=== PATIENT | male | born 1975 | race Caucasian/White ===

== ENCOUNTER 2018-07-01 11:34 | Outpatient (REF) | payer MEDICARE, MEDICAID, SELFPAY ==
[2018-07-01 20:25] LABS: Anion Gap 7.7 mmol/L (3-11); BUN 15 mg/dL (7-18); CO2 28.3 mmol/L (21.0-32.0); CREATININE 1.09 mg/dL (0.70-1.30); Chloride 102 mmol/L (98-107); Glucose 95 mg/dL (70-100); Potassium 4.4 mmol/L (3.5-5.1); Sodium 138 mmol/L (136-145); TSH (W/Ref FT4) 0.74 uIU/mL (0.358-3.74); Uric Acid 5.1 mg/dL (3.5-7.2)
== END 2018-07-01 11:54 ==
LOC: NCHCN 11:34
PROVIDERS: PCP Family Medicine; Visit Provider Family Medicine
DX: E03.9 Hypothyroidism, unspecified (principal); M10.9 Gout, unspecified
CPT/HCPCS: 80048; 84443; 84550

== ENCOUNTER 2019-07-09 15:28 | Outpatient (REF) | payer MEDICARE, MEDICAID, SELFPAY ==
[2019-07-09 16:19] LABS: TSH (W/Ref FT4) 0.61 uIU/mL (0.36-3.74); Uric Acid 4.3 mg/dL (3.5-7.2)
== END 2019-07-09 15:48 ==
LOC: NCHCN 15:28
PROVIDERS: PCP Family Medicine; Visit Provider Family Medicine
DX: E03.9 Hypothyroidism, unspecified (principal); M10.9 Gout, unspecified
CPT/HCPCS: 84443; 84550

== ENCOUNTER 2020-07-05 13:32 | Outpatient (REF) | payer MEDICARE, MEDICAID, SELFPAY ==
[2020-07-05 19:32] LABS: Glucose 89 mg/dL (74-106); TSH (W/Ref FT4) 0.98 uIU/mL (0.36-3.74); Uric Acid 4.3 mg/dL (3.5-7.2)
[2020-07-07 10:38] LABS: HIV-1/2 Ag & Ab Screen Negative (Negative)
[2020-07-07 10:50] LABS: Hepatitis C Ab w Rflx HCV PCR Negative (Negative)
== END 2020-07-05 13:33 | disposition home or self-care (01) ==
LOC: NCHCN 13:32
PROVIDERS: PCP Family Medicine; Visit Provider Family Medicine
DX: E03.9 Hypothyroidism, unspecified (principal); M10.9 Gout, unspecified; Q90.9 Down syndrome, unspecified; Z11.4 Encounter for screening for human immunodeficiency virus [HIV]; Z11.59 Encounter for screening for other viral diseases; Z13.1 Encounter for screening for diabetes mellitus
CPT/HCPCS: 82947; 86803; 87389; 84443; 84550

== ENCOUNTER 2021-07-06 14:07 | Outpatient (REF) | payer MEDICARE, MEDICAID, SELFPAY ==
[2021-07-06 23:24] LABS: TSH (W/Ref FT4) 0.12 uIU/mL (0.36-3.74); Uric Acid 4.5 mg/dL (3.5-7.2)
[2021-07-06 23:50] LABS: FREE T4 0.98 ng/dL (0.76-1.46)
== END 2021-07-06 14:08 | disposition home or self-care (01) ==
LOC: NCHCN 14:07
PROVIDERS: PCP Family Medicine; Visit Provider Family Medicine
DX: E03.9 Hypothyroidism, unspecified (principal); M10.9 Gout, unspecified
CPT/HCPCS: 84439; 84443; 84550

== ENCOUNTER 2021-10-13 14:51 | Outpatient (REF) | payer MEDICARE, MEDICAID, SELFPAY ==
[2021-10-13 15:45] LABS: TSH (W/Ref FT4) 0.55 uIU/mL (0.36-3.74)
== END 2021-10-13 14:52 | disposition home or self-care (01) ==
LOC: NCHCN 14:51
PROVIDERS: PCP Family Medicine; Visit Provider Family Medicine
DX: E03.9 Hypothyroidism, unspecified (principal)
CPT/HCPCS: 84443

== ENCOUNTER 2022-06-20 20:05 | Emergency (ER) | payer MEDICARE, MEDICAID, SELFPAY ==
[2022-06-20 20:09] VITALS: BP 149/104; PULSE 66; RESP 17; TEMP 36.9; O2SAT 98
--- NOTE | 2022-06-20 20:34 | W.ED.GENAD ---
Discharge Plan Disposition Patient Disposition: Home Discharge Details Clinical Impression: Sensation of foreign body in esophagus Primary Care Provider: Neelima Corona ED Provider: Cordelia Masterson Home Meds and New Rx's Prescriptions: Continued probenecid 500 mg tablet 500 mg PO .QD levothyroxine 100 mcg capsule 100 mcg PO DAILY triamcinolone acetonide 0.1 % cream 1 applic topical DAILY PRN pimecrolimus 1 % cream See Rx Instructions topical .COMPLEX Rx Instructions: topically; TO FACE cephalexin 500 mg capsule 2,000 mg PO ONCE PRN Rx Instructions: PRIOR TO DENTAL PROCEDURE Discharge Instructions Instructions: Esophageal Foreign Body (ED) Additional Instructions: No evidence of aspiration on the x-ray. He did have some bronchial thickening. This could be bronchitis. Follow up with primary care provider in 3-5 days. Return to ED sooner if any worsening or concerns. Increase oral fluids. He may take [id number] cold and cough medicine as needed. Referrals: Neelima Corona MD [Primary Care Provider] - 3 days Medical Decision Making 46-year-old male with past medical history of Down syndrome presents to the ER accompanied by his brother with chief complaint of foreign body sensation to his esophagus. Prior to arrival patient was eating a raw carrot and choked while eating this he was able to cough up the care however after the episode he attempted to drink some water and vomited it up. He does still have a sensation that the care to stuck in his throat. He is speaking in full sentences, no stridor no wheezing auscultated. Effervescent granules ordered we will attempt. Will consider chest x-ray. Informed by [employer] staff officer patient did spit up some of the effervescent granules, was given a whit eros which he seems to be tolerating at this time. No further emesis noted, x-ray shows no secondary evidence of obstructive aspirated body. No radiopaque bodies are visualized. There is mild peribronchial thickening for possible bronchitis or bronchial edema. No infiltrates. Patient will be discharged with strict return instructions. Patient is able to handle his secretions and no further emesis noted. This text was generated using Stonewedgeation system, please disregard any oddities of phrase or misspellings. Imaging Data Radiologic Study: Imaging: X-Ray Radiologist's impression: TECHNIQUE: Imaging protocol: Radiologic exam of the chest. Views: 2 views. COMPARISON: No relevant prior studies available. FINDINGS: Lungs: Symmetrical pulmonary expansion. Pulmonary vasculature grossly normal. Question mild peribronchial thickening bilaterally, question mild changes of bronchitis or bronchial edema. No pulmonary infiltrates. Pleural spaces: No pleural effusion. No pneumothorax. Heart/Mediastinum: Heart size normal. No tracheal/mediastinal shift. Bones/joints: No acute osseous abnormalities are identified. IMPRESSION: 1. Question mild peribronchial thickening suspicious for mild changes of bronchitis or bronchial edema. 2. Symmetrical pulmonary expansion with no secondary radiographic evidence of obstructive aspirated body. No radiopaque bodies are visualized. Thank you for allowing us to participate in the care of your patient. HPI General Mode of arrival: ambulatory. Date/Time Provider Initiated Documentation: 06/20/22 20:13. Limitations to Documentation: physical limitation (Down Syndrome). Information obtained by: patient, family, RN notes reviewed and old records reviewed. HPI Narrative: 46-year-old male with past medical history of Down syndrome presents to the ER accompanied by his brother with chief complaint of foreign body sensation to his esophagus. Prior to arrival patient was eating a raw carrot and choked while eating this he was able to cough up the care however after the episode he attempted to drink some water and vomited it up. He does still have a sensation that the care to stuck in his throat. He is speaking in full sentences, no stridor no wheezing auscultated. Related Data Home Medications Medication Instructions Recorded Confirmed cephalexin 500 mg capsule 2,000 mg PO ONCE PRN 02/15/22 06/20/22 levothyroxine 100 mcg capsule 100 mcg PO DAILY 02/15/22 06/20/22 pimecrolimus 1 % topical cream See Rx Instructions topical 02/15/22 06/20/22 .COMPLEX probenecid 500 mg tablet 500 mg PO .QD 02/15/22 06/20/22 triamcinolone acetonide 0.1 % 1 applic topical DAILY PRN 02/15/22 06/20/22 topical cream Allergies Allergy/AdvReac Type Severity Reaction Status Date / Time No Known Allergies Allergy Unverified 06/20/22 20:47 General Stated Complaint: GenMedical BRAD: 3 Review of Systems All systems reviewed & are unremarkable except as noted in HPI and below ENT Ears, Nose, Mouth, and Throat: Reports as per HPI Gastrointestinal Gastrointestinal: Reports as per HPI and Reports vomiting PFSH All Active Problems (Updated 06/20/22 @ 23:04 by Cordelia Masterson NP) Sensation of foreign body in esophagus (Acute) Corns and callosities (Acute) Nail dystrophy (Acute) Social History Smoking/Tobacco Use Status: Never Smoking risk assessment performed?: Yes Alcohol Intake: never Substance use type: does not use Do you feel safe at home: Yes Do you feel safe in your relationship?: Yes Exam Narrative Exam Narrative: Constitutional: Alert and oriented at baseline. Appears stated age. Normal body habitus. Head: Normocephalic, no trauma. Eyes: Pupils PERRL, Red reflex noted, EOM's intact. Eyelids symmetrical without lesions, discharge, or swelling. ENT: Bilateral TM's WNL, External ear normal to inspection, no mastoid TTP, swelling, or erythema, Nasal turbinates WNL, no nasal discharge. Normal dentition, Posterior pharynx WNL, no exudate. Chest: RRR, Normal S1, S2, distal pulses intact. Resp: Lungs clear to auscultation bilaterally, no wheezes, rales, or rhonchi. No stridor auscultated. Abdomen: Soft, non-distended, Normoactive bowel sounds all 4 quads. Musculoskeletal: Normal gait, 5/5 strength to all four extremities. Skin: No suspicious rashes or lesions. Capillary refill less than 2 sec. Neurologic: Cranial nerves II-XII intact. Alert and oriented x 3. Motor: No deficits noted. Sensory: Intact bilaterally all 4 extremities. Reflexes: DTR's intact bilaterally.. Hematologic/Lymphatic: No ecchymosis, no lymphadenopathy. Course Vital Signs Vital signs: Vital Signs Temperature 36.9 C 06/20/22 20:09 Pulse 66 06/20/22 20:09 Respiratory Rate 17 06/20/22 20:09 Blood Pressure 149/104 H 06/20/22 20:09 Pulse Oximetry 98 06/20/22 20:09 Temperature 36.9 C 06/20/22 20:09 Temperature Source Temporal Artery Scan 06/20/22 20:09 Pulse 66 06/20/22 20:09 Respiratory Rate 17 06/20/22 20:09 Respiratory Effort Normal 06/20/22 20:12 Blood Pressure 149/104 H 06/20/22 20:09 Blood Pressure Position Sitting 06/20/22 20:09 Pulse Oximetry 98 06/20/22 20:09 Oxygen Delivery Method Room Air 06/20/22 20:09 Oxygen Flow Rate 0 06/20/22 20:09 Pain Level 2 06/20/22 20:09
[2022-06-20] MEDS: Simethicone/Sod Bicarb/Cit Ac, 4 gram PACKET 1 PACKET PO (20:59)
--- NOTE | 2022-06-20 21:15 | DI.RAD_ITS ---
Exam(s) XR CHEST 2V PA LATERAL EXAM: XR CHEST 2V PA LATERAL CLINICAL HISTORY: Choking, aspiration TECHNIQUE: 2D digital imaging was performed of the chest. Two images were obtained. PA and lateral views were obtained. COMPARISON: No exams were available for comparison FINDINGS: MEDIASTINUM: Normal. HEART: Normal. PULMONARY VASCULATURE: Normal. LUNGS: No focal consolidating infiltrates. PLEURAL SPACE: No pleural effusion or pneumothorax. BONE:Within normal limits for the patient's age. OTHER FINDINGS:Normal. IMPRESSION: No acute pulmonary findings. DATA REPOSITORY: RADIATION DOSE DELIVERED:
--- NOTE | 2022-06-20 22:51 | DI.VRAD_ITS ---
PROCEDURE INFORMATION: Exam: XR Chest Exam date and time: 06/20/2022 9:52 PM Age: 46 years old Clinical indication: Other: Choking, aspiration TECHNIQUE: Imaging protocol: Radiologic exam of the chest. Views: 2 views. COMPARISON: No relevant prior studies available. FINDINGS: Lungs: Symmetrical pulmonary expansion. Pulmonary vasculature grossly normal. Question mild peribronchial thickening bilaterally, question mild changes of bronchitis or bronchial edema. No pulmonary infiltrates. Pleural spaces: No pleural effusion. No pneumothorax. Heart/Mediastinum: Heart size normal. No tracheal/mediastinal shift. Bones/joints: No acute osseous abnormalities are identified. IMPRESSION: 1. Question mild peribronchial thickening suspicious for mild changes of bronchitis or bronchial edema. 2. Symmetrical pulmonary expansion with no secondary radiographic evidence of obstructive aspirated body. No radiopaque bodies are visualized. Dictated and Authenticated by: Juan David Tomlinson MD. Ordering:ANNALEE Storey MD
[2022-06-20 23:27] VITALS: BP 131/84; PULSE 66; RESP 18; TEMP 36.7; O2SAT 95
== END 2022-06-20 23:18 | disposition home or self-care (01) ==
PROVIDERS: Emergency Provider Registered Nurse Emergency; PCP Family Medicine
DX: T18.128A Food in esophagus causing other injury, initial encounter (principal)
CPT/HCPCS: 99283; 71046; 99282

== ENCOUNTER 2022-07-07 15:23 | Outpatient (REF) | payer MEDICARE, MEDICAID, SELFPAY ==
[2022-07-07 18:45] LABS: HGB 15.8 g/dL (13.5-17.5); MCH 33.4 pg (27.0-33.0); MCHC 33.6 % (32.0-36.0); MCV 99 fL (80-95); MPV 9.9 fL (8.0-11.0); Platelet Count 238 10^3/uL (130-400); RBC 4.73 10^6/uL (4.36-5.78); RDW 13.6 % (11.8-14.1); RDW-SD 50.4 fL
[2022-07-07 19:11] LABS: BUN 15 mg/dL (7-18); CREATININE 1.1 mg/dL (0.70-1.30); Calculated LDL 166 mg/dL (<100); Chloride 105 mmol/L (98-107); Cholesterol 248 mg/dL (<200); Estimated GFR 82.81 (mL/min/1.73m2); Glucose 98 mg/dL (74-106); HDL Cholesterol 42 mg/dL (40-60); Potassium 4.3 mmol/L (3.5-5.1); Sodium 143 mmol/L (136-145); TSH (W/Ref FT4) 0.34 uIU/mL (0.36-3.74); Triglyceride 202 mg/dL (<150)
[2022-07-07 19:37] LABS: FREE T4 0.99 ng/dL (0.76-1.46)
== END 2022-07-07 15:24 | disposition home or self-care (01) ==
LOC: NCHCN 15:23
PROVIDERS: PCP Family Medicine; Visit Provider Family Medicine
DX: E03.9 Hypothyroidism, unspecified (principal); E78.5 Hyperlipidemia, unspecified
CPT/HCPCS: 80048; 80061; 85027; 84439; 84443

== ENCOUNTER 2022-10-06 13:36 | Outpatient (REF) | payer MEDICARE, MEDICAID, SELFPAY ==
[2022-10-06 16:19] LABS: TSH (W/Ref FT4) 0.79 uIU/mL (0.36-3.74)
== END 2022-10-06 13:37 | disposition home or self-care (01) ==
LOC: NCHCN 13:36
PROVIDERS: PCP Family Medicine; Visit Provider Family Medicine
DX: E03.9 Hypothyroidism, unspecified (principal)
CPT/HCPCS: 84443

== ENCOUNTER → 2022-11-15 01:14 | Outpatient (CLI) | payer MEDICARE, MEDICAID, SELFPAY ==
--- NOTE | 2022-11-15 | DI.RAD_ITS ---
Exam(s) RF MODIFIED SPEECH BA SWALLOW TECHNIQUE: Modified barium swallow was performed in conjunction with speech pathology. CONTRAST MATERIAL: Oral barium Oral water soluble contrast was administered. COMPARISON: No exams were available for comparison FINDINGS: Yadira noel during swallowing mechanism study performed the speech therapist. Please see that report for details. IMPRESSION: There is no evidence of obvious aspiration on this study. RADIATION DOSE DELIVERED: lauri Billingsley=9.10 mGy
--- NOTE | 2022-11-15 14:21 | ST.MBS_ITS ---
Date of Service Date of service: 11/15/22 Time of Service: 14:35 Modified Barium Swallow Study Findings: Patient referred for VFSE/MBSS from Dr. Corona given recent episodes causing concern for choking. HPI & Patient report of function: Patient is a 47 year old M with Down Syndrome who presented to ED earlier this year due to coughing/choking episode wiht a raw carrot concluded to be esophageal foreign body (vs aspiration). He lives with his family who has also reported increased frequency of coughing episodes with solid foods at home. Patient is without recent hx of pneumonia or breathing changes. All Active Problems?(Updated 06/20/22 @ 23:04 by Cordelia Masterson NP) Sensation of foreign body in esophagus (Acute) Corns and callosities (Acute) Nail dystrophy (Acute) IMPRESSIONS: Good airway protection without penetration or aspiration.Largely normal and timely oral-pharyngeal phase with the exception of reduced vs absent epiglottic inversion resulting in mild vallecular residue. Noting presence of prominence / hypertrophy at level of C5-6 likely contributing to poor tolerance of solid textures such as the incident which prompted ED visit earlier this year. Recommend soft/bite size solid textures, thin liquids and strategies below to mitigate risk of pharyngeal stasis and airway obstruction. Continue to work with PCP to manage reflux and implement relflux management strategies discussed as below. Consider medical management of UES stricture if these strategies do not improve symptoms. No further [employer] ATT[employer] services needed at this time. If further symptoms develop or repeat instrumental assessment is desired, return to [employer] for re-evaluation in the future. RECOMMENDATIONS: Diet Texture Recommendation:? IDDSI LEVEL SOLIDS 6-Soft & Bite-Sized Solids LIQUIDS 0-Thin Liquids Please see further details at?www.iddsi.org MEDICATIONS Whole or Crushed, as able with 0-Thin Liquids Do not alter medications (e.g., cut)? without advice from your MD or pharmacist. Diet texture modification is per patient's preference; please adjust diet textures at patient's discretion & collaboration with care team. Risk Management Strategies:? Behavioral reflux precautions, including upright position during + 90 mins after meals. Small bites, approx [id number] Alternate solids/liquids as able Add sauces/gravies to foods Control risk factors for aspiration pneumonia via (a) thorough oral hygiene & (b) maintaining physical mobility as tolerated OBJECTIVE Videofluoroscopic Swallow Evaluation (VFSE/MBSS) was conducted in the lateral[ and [id number]] projection by Speech-Language Pathologist, in collaboration with Radiologist, to evaluate oropharyngeal swallow function. Anatomic view under fluoroscopy: WFL PO Barium Contrast Trials Oral barium water-soluble contrast was administered as follows: IDDSI Level 0 Varibar thin liquid (40% w/v) IDDSI Level 4 Varibar pudding/pureed/extremely thick (40% w/v) IDDSI Level 7 Regular Solid: 1/2 atfi cracker coated in 3 mL Varibar pudding 13 mm barium tablet taken with Thin Liquids. MBSImP Component Scores: 3 COMPONENT Scale SCORE 1 Lip closure (0-4) 0 Resulted in no labial escape 2 Hold Position (0-3) 2 Resulted in posterior escape of less than half of the b olus 3 Bolus Preparation (0-4) 0 Resulted in timely and efficient chewing and mashi ng 4 Bolus Transport (0-4) 0 Was with brisk tongue motion 5 Oral Residue (0-4) 1 Was a trace, lining oral structures 6 Swallow Initiation (0-4) 1 Occurred when the bolus head was in valleculae 7 Soft Palate Elevation (0-4) 0 Resulted in no bolus between soft palate and t he pharyngeal wall 8 Laryngeal Elevation (0-3) 0 Demonstrated complete superior movement of thyro id cartilage with complete approximation of arytenoids to epiglottic petiole 9 Anterior Hyoid Motion (0-2) 0 Demonstrated complete anterior movement 10 Epiglottic Movement (0-2) 2 vs 0 Resulted in no inversion (with small sip size, larger sips and dense textures resulted in full inversion) 11 Laryngeal Closure (0-2) 0 Was complete with no air or contrast in laryngeal vestibule A 12 Pharyngeal Stripping Wave (0-2) 0 Was present and complete 13 Pharyngeal Contraction (0-3) NA 14 PES Opening (0-3) 1 Demonstrated partial distension/partial duration, with partial obstruction of flow 15 Tongue Base Retraction (0-4) 1 Allowed a trace column of contrast or air between tongue base and pharyngeal wall 16 Pharyngeal Residue (0-4) 2 Was a collection of residue within or on pharyngeal structures 17 Esophageal Clearance (0-4) NA Results: COMPONENT Scale SCORE 1 Oral Score (0-18) 3 2 Pharyngeal Score (0-29) 5 3 Esophageal Score (0-4) 0 Penetration-Aspiration Scale: COMPONENT Scale SCORE 1 Thin liquid (1-8) 1 Contrast did not enter the airway 2 Volo thick (1-8) NA 3 Honey thick (1-8) NA 4 Pudding thick (1-8) 1 Contrast did not enter the airway 5 Cookie (1-8) 1 Contrast did not enter the airway Thank you for allowing us to take part in this patient's care. Please feel free to contact the [facility] Speech Language Pathology Department with any questions/concerns. Coding CPT Codes MOTION FLUOROSCOPY/SWALLOW - [id number] ([id number])
[2022-11-15] MEDS: Barium Sulfate 700 MG TAB PO (15:14)
[2022-11-15] MEDS: Barium Sulfate 81% w/w for Oral Suspension 148 GM BTL PO (15:16)
== END ==
PROVIDERS: PCP Family Medicine; Visit Provider Speech-Language Pathologist
DX: R13.10 Dysphagia, unspecified (principal)
CPT/HCPCS: 92611; 74221

== ENCOUNTER 2023-07-02 13:53 | Outpatient (REF) | payer MEDICARE, MEDICAID, SELFPAY ==
[2023-07-02 15:42] LABS: HCT 46.4 % (40.0-50.0); HGB 15.6 g/dL (13.5-17.5); MCH 33.9 pg (27.0-33.0); MCHC 33.6 % (32.0-36.0); MCV 101 fL (80-95); MPV 10.4 fL (8.0-11.0); Platelet Count 249 10^3/uL (130-400); RDW 13.2 % (11.8-14.1); WBC 4.63 10^3/uL (4.4-10.8)
[2023-07-02 16:43] LABS: ALT 55 U/L (16-63); AST 26 U/L (15-37); Albumin 3.9 g/dL (3.4-5.0); Alkaline Phosphatase 71 U/L (46-116); Anion Gap 6.4 mmol/L (3-11); BUN 17 mg/dL (7-18); Bilirubin, Total 0.6 mg/dL (0.2-1.0); CO2 30.6 mmol/L (21.0-32.0); CREATININE 1.2 mg/dL (0.70-1.30); Calcium 9.1 mg/dL (8.5-10.1); Chloride 105 mmol/L (98-107); Estimated GFR 74.13 (mL/min/1.73m2); Glucose 91 mg/dL (74-106); Potassium 4.1 mmol/L (3.5-5.1); Sodium 142 mmol/L (136-145); TSH (W/Ref FT4) 1.03 uIU/mL (0.36-3.74); Total Protein 7.1 g/dL (6.4-8.2); Vitamin B12 420 pg/mL (193-986)
[2023-07-02 16:47] LABS: Folate > 20.0 ng/mL (8.6-20.0)
[2023-07-02 17:17] LABS: Hemoglobin A1C 5.5 % (<5.7)
== END 2023-07-02 13:54 | disposition home or self-care (01) ==
LOC: NCHCN 13:53
PROVIDERS: PCP Family Medicine; Visit Provider Family Medicine
DX: E03.9 Hypothyroidism, unspecified (principal); E66.3 Overweight; Z00.00 Encounter for general adult medical examination without abnormal findings; D75.89 Other specified diseases of blood and blood-forming organs
CPT/HCPCS: 80053; 85027; 82607; 82746; 83036; 84443

== ENCOUNTER → 2023-10-08 02:08 | Outpatient (CLI) | payer MEDICARE, MEDICAID, SELFPAY ==
--- OUTSIDE RECORDS SUMMARY | 2023-10-08 02:10 | XMS_ITS | Encounter Summary ---
Author Organization [facility] Address [address] [place] [address] Care Team Providers Care Spa Host Name Role Phone Neelima Corona MD Primary Care Provider [phone] Reason for Visit * Reason Comments Memory Loss Encounter Details Date Type Department Care Team (Late st Contact Info) Description 08/28/2012 10:30 EDT Office Visit [facility] - Medical Office Building [address] [place] [id number] Erin Flood, PhD [address] [place] [address] Medical Office Building, [address] [place] [address] Memory loss (Primary Dx) Social History Tobacco Use Types Packs/Day Years Used Date Smoking Tobacco: Never Smokeless Tobacco: Never Alcohol Use Standard Drinks/Week Comments No 0 (1 standard drink = 0.6 oz pur e alcohol) Sex and Gender Information Value Date Recorded Sex Assigned at Not on file Gender Identity Not on file Sexual Orientation Not on file documented as of this encounter Progress Notes * Erin Flood, PhD - 08/28/2012 1609 EDT NEUROLOGY [facility] Medical Office Building [address] [place] [address], [address] [place] [address] PROGRESS/FOLLOWUP NOTE - 08/28/2012 PATIENT PROFILE: Mr Lopez is a 37-year-old right-handed man with Down syndrome who lives with his brother and nqtkyk-[id number] in [place]. He receives services through [facility], including various outings and a supervised job placement at a supermarket. Premorbid psychiatrichistory is negative apart from Down syndrome and there is no known family psychiatric history. HISTORY OF PRESENT ILLNESS: [facility]. This had beenrecommended by the state based on his Down syndrome and age. A a sister felt that there had been some slight declines in his routine over the preceding year. He completed neuropsychological testing, but this could not be used to make a diagnosis without two comparison points, so he is here again for repeat evaluation. Today, Mr Lopez is accompanied by his [id number], who reports that the patient is doing about the same this year as he was last year. She has seen no particular declines in his function. She alsoobserved that she had alissa little less worried about any changes last year than his sister had been. Mr Lopez continues to function well within his routine. He is able to incorporate some new things into this. For example, he has started physical therapy and is able to remember to do those exercises twice per day. There have been no complaints about his performance at work. He still does his own laundry and other basic chores around the home. He continues to read the sports section of the newspaper and still likes to copy over things. He manages his own basic self care. He has assistance withfinances, appointment management, medication management and so on. BEHAVIORAL OBSERVATIONS AND MENTAL STATUS EXAMINATION: Mr Lopez is a cleanly groomed and dressed man appearing his stated age who is alert and appropriately interactive. Affect is bland. Mood is described as pretty good; he denies feelings of depression, nervousness or anxiety. He reports no problems with sleep, appetite, energy or interest in activities. He has no wishes for . He has no formal delusions or hallucinations, but has always had a number of imaginary friends. Thought process is concrete. NEUROPSYCHOLOGICAL EVALUATION: ORIENTATION AND ATTENTION: Mr Lopez is grossly oriented to person and place. He knows the month and day of the week, but not the date or year. Digit span is 5 forward, 2 backward. He cannot do serial sevens, but can spell world backward. Simple cognitive tracking continues to be impaired on other testing, but no more so than last year. MEMORY: The patient cannot recall any of 3 words after a brief distraction. Immediate and delayed recall of short stories falls below the 1st percentile. Immediate visuospatial recall falls below the1st percentile, with delayed recall at the 2nd percentile. LANGUAGE: Spontaneous speech is impoverished, but intelligible. Auditory comprehension is grossly intact. He is able to follow 2-step commands; he cannot reliably follow 3-step commands. Confrontation naming is within normal limits given his background. VISUOSPATIAL FUNCTIONS: Block design is impaired. There is constructional disturbance in copying geometric figures. The patient is able to number the face of a clock, although he has planning difficulty in spacing the numbers. He cannot draw hands to show a designated time. SUMMARY: Mr Lopez scores 19 on the MMSE, compared to 17 in July 2011. His score on the Alzheimer's Disease Assessment Scale has improved 3 points and is now 23. He does not have significant decline on other portions of neuropsychological testing. Test results are congruent with the clinical historyin suggesting good stability over time. We will not automatically schedule another appointment for Mr Lopez, but his ieavrs-[id number] knows that she can make contact with us at any time if things change, and we might consider doing another routine evaluation 5 years from now if there is no decline inthe intervening time. TOTAL TIME: Three hours. Thirty-one [place] [id number] and included testing that was separate from the testing done by the cable television technician. Electronically Signed by Erin Flood, Ph.D. 09/03/2012 09:06 Erin Flood, Ph.D. Licensed Psychologist-Doctorate - Erin Flood, Ph.D. - [facility] Job ID: SM Doc ID: [id number] Ext Doc ID: [id number] cc: Neelima Corona MD * Erin Flood, PhD - 08/28/2012 1353 EDT This office note has been dictated. documented in this encounter Plan of Treatment Not on file documented as of this encounter Visit Diagnoses Diagnosis Memory loss- Primary documented in this encounter Care Teams Spa Host Relationship Specialty Start Date End Date Neelima Corona MD [address] [place] [phone] PCP - General 03/10/11 documented as of this encounter
--- OUTSIDE RECORDS SUMMARY | 2023-10-08 02:10 | XMS_ITS | Encounter Summary ---
Author Organization [facility] Address [address] [place] [address] Care Team Providers Care Payroll Supervisor Name Role Phone Neelima Corona MD Primary Care Provider [phone] Reason for Visit * Reason Onset Date Comments Medication Management 08/29/2013 Valium Encounter Details Date Type Department Care Team (Late st Contact Info) Description 08/29/2013 Telephone [facility] Cardiology - [address] [address] Bertrand Rabago MD [address] [facility] [address] [place] [address] Medication Management (Valium) Social History Tobacco Use Types Packs/Day Years Used Date Smoking Tobacco: Never Smokeless Tobacco: Never Alcohol Use Standard Drinks/Week Comments No 0 (1 standard drink = 0.6 oz pur e alcohol) Sex and Gender Information Value Date Recorded Sex Assigned at Not on file Gender Identity Not on file Sexual Orientation Not on file documented as of this encounter Miscellaneous Notes * Telephone Encounter - Audrey Muñoz RN - 08/29/2013 1546 EDT Valium or a similar drug is okay. Bill Notified marla Marcer of above, no learning barriers identified. * Telephone Encounter - Audrey Muñoz RN - 08/29/2013 1016 EDT Brother called on Bertrand bernard./ Pt saw optamologist yesterday, recommending laser surgery. He is asking Dr Rabago if there are any contraindications on pt with down's syndrome receiving valium as that was a suggestion from eye surgeon, as pt is unable to hold his eye open for the surgery. Let him know would discuss with Dr Rabago and call back Sunday. He was fine with this plan. Surgery is not scheduled yet. * Telephone Encounter - Kirti Saldaña - 08/29/2013 0959 EDT Pt's [id number] inquiring what Dr. Arizmendi's thoughts are on pt taking valium for a laser surgery. Pt will also be having a hip surgery. Please call to discuss. documented in this encounter Plan of Treatment Not on file documented as of this encounter Visit Diagnoses Not on filedocumented in this encounter Care Teams Payroll Supervisor Relationship Specialty Start Date End Date Neelima Corona MD [address] [place] [phone] PCP - General 03/10/11 documented as of this encounter
--- OUTSIDE RECORDS SUMMARY | 2023-10-08 02:10 | XMS_ITS | Encounter Summary ---
Author Organization Health system Address [address] [place] [address] Care Team Providers Care Boot And Shoe Laborer Name Role Phone Neelima Corona MD Primary Care Provider [phone] Reason for Visit * Reason Onset Date Comments Medication Management 09/17/2013 Patient Wi eulalio Lopez is having a Yag Laser on 09.22.13. SMP is calling in Rx for Valium to be taken prior. Please send Rx to [facility] in [place]. Encounter Details Date Type Department Care Team (Late st Contact Info) Description 09/17/2013 Telephone [facility] Ophthalmology - [facility] [address] [place], [place] [id number] Asher Hirsch MD [address] [facility], [address] [place] [address] Medication Management (Patient Bertrand Lopez is having a Yag Laser on 09.22.13. SMP is calling in Rx for Valium to be taken prior. Please send Rx to [facility] in [place].) Social History Tobacco Use Types Packs/Day Years [...] encounter Miscellaneous Notes * Telephone Encounter - Libra King RN - 09/17/2013 0916 EDT I spoke with Dr. Hirsch and he will take care of this and let me know if he needs my assistance with this. documented in this encounter Plan of Treatment Not on file documented as of this encounter Visit Diagnoses Not on filedocumented in this encounter Care Teams Boot And Shoe Laborer Relationship Specialty Start Date End Date Neelima Corona MD [address] [place] [phone] PCP - General 03/10/11 documented as of this encounter
--- OUTSIDE RECORDS SUMMARY | 2023-10-08 02:10 | XMS_ITS | Encounter Summary ---
Author Organization [facility] Address [address] [place] [address] Care Team Providers Care Well Digger Name Role Phone Neelima Corona MD Primary Care Provider [phone] Reason for Visit * Reason Comments Heart Problem * Referral (Routine) - Closed Specialty Diagnoses / Procedures [facility] Contact Cardiology Diagnoses Down syndrome, unspecified Neelima Corona MD [address] [facility] [address] [place] [address] [facility] Cardiology [address] [place] [address] [place] [address] Referral ID Status Reason Start Date Expiration Date Visits Re quested Visits Authorized [id number] Closed 1 1 Encounter Details Date Type Department Care Team (Late st Contact Info) Description 11/18/2019 16:00 EDT Office Visit [facility] Cardiology - [place] [address] [place] [address] Bertrand Diggs MD [address] [facility] [place] [address] Down syndrome (Primary Dx); Circulation problem Social History Tobacco Use Types Packs/Day Years Used Date Smoking Tobacco: Never Smokeless Tobacco: Never Alcohol Use Standard Drinks/Week Comments No 0 (1 standard drink = 0.6 oz pur e alcohol) Interpersonal Safety Answer Date Record ed Physically Hurt Never 10/05/2019 Verbally Threaten Not on file 10/05/2019 Sex and Gender Information Value Date Recorded Sex Assigned at Not on file Gender Identity Not on file Sexual Orientation Not on file documented as of this encounter Last Filed Vital Signs Vital Sign Reading Time Taken Comments Blood Pressure 100/60 11/18/2019 1559 EDT Pulse 64 11/18/2019 1559 EDT Temperature - - Respiratory Rate - - Oxygen Saturation 98% 11/18/2019 1559 EDT Inhaled Oxygen Concentration - - Weight 77.6 kg (171 lb) 11/18/2019 1559 EDT Height - - Body Mass Index 30.78 06/30/2014 1214 EDT documented in this encounter Progress Notes * Bertrand Diggs MD - 11/18/2019 1600 EDT On 11/18/2019, I had the pleasure of seeing Bertrand Lopez in our clinic for adults with Down syndrome. I last saw him in June 2014. Bipin has a history of Down syndrome, hypothyroidism, gout, cataracts, hip dysplasia, esotropia and hyperlipidemia. He is status post cataract resection in the left eye and hip replacement on the leftside. Bipin was accompanied by his sister on today's visit. According to her, Bipin has exhibited no evidence of cognitive decline. 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 He reads the newspaper every day. She feels like his memory is intact. Bipin's sister is worried about Bipin's circulation; she said his nayan and feet are cold at times andappear purple in color. ?? Bipin does receive an influenza vaccination. Medications: Levothyroxine 112 mcg daily. Probenecid. Multivitamin. Sennosides. ?? Allergies: None known. ?? Objective: Well-appearing gentleman, with features consistent with Down syndrome. Vitals: Blood pressure 100/60, heart rate 64 (regular), oxygen saturation 98% on room air, weight 171 pounds, height 62.5 inches and BMI 30.8. HEENT: Anicteric sclerae, normal conjunctivae, normal mucous membranes. Neck: No obvious thyromegaly. Lungs: Clear to auscultation bilaterally with good air movement. There were no wheezes or crackles. Cardiovascular: No jugular venous distention. Auscultation: Normal 1st and 2nd heart sounds. There was no systolic murmur, diastolic murmur, gallop, click or rub. Abdomen: Mildly obese. Extremities: No clubbing, cyanosis or edema. The brachial and dorsalis pedis pulses were normal. ?? Assessment and Plan: Bertrand Lopez is a 43 year-old gentleman with Down syndrome. It is my opinion, that he is doing well from the standpoint of his Down syndrome. ?? Paradoxically, patients with Down syndrome have cardiovascular youth for life. They essentially never develop hypertension or atherosclerotic vascular disease. For that reason, lipid-lowering therapyand aspirin are not needed in adults with Down syndrome. In contrast, they have premature brain aging and have an increased incidence of early dementia. In fact, it is quite common for adults with Down syndrome to develop an Alzheimer's-type dementia when they are in their 50s (6th decade of life).At this point, Bipin seems to be doing quite well. There is really no obvious cognitive decline and he seems to function extremely well on a day-to-day basis. I'm not worried about his circulation, and I told his sister that she need not worry. ?? I recommend that all adults with Down syndrome receive an annual influenza vaccination; Bipin already does so. I asked his sister to keep him as physically and intellectually active as possible. From her forward, I will likely only see Bipin on a PRN basis. BERTRAND DIGGS MD Attending Sales Representative Business Courses [facility] Note: I spent 30 minutes evaluating Bipin (25 minutes [id number]) > 50% of which was spent in discussion // counseling related to his circulation and overall health. documented in this encounter Plan of Treatment Not on file documented as of this encounter Visit Diagnoses Diagnosis Down syndrome- Primary Down's syndrome Circulation problem Unspecified circulatory system disorder documented in this encounter Historical Medications * This list may reflect changes made after this encounter. Medication Sig Dispensed Refills Start Date End Date propylene glycol (SYSTANE BALANCE) 0.6 % drops Apply to eye. added in this encounter Care Teams Well Digger Relationship Specialty Start Date End Date Neelima Corona MD [address] [place] [phone] PCP - General 03/10/11 documented as of this encounter
--- OUTSIDE RECORDS SUMMARY | 2023-10-08 02:10 | XMS_ITS | Encounter Summary ---
Author Organization [facility] Address [address] [place] [address] Care Team Providers Care Editor Farm Journal Name Role Phone Neelima Corona MD Primary Care Provider Reason for Visit * Reason Comments Downs Syndrome 3 year follow up, lugo d hip replacement and cataract laser procedure, recent annual check up with PCP, doing well. Encounter Details Date Type Department Care Team (Late st Contact Info) Description 06/30/2014 11:30 EDT Office Visit [facility] Cardiology - [address] [place] [address] Bertrand Rabago MD [address] [place] [address] [address] [place] [address] Down syndrome (Primary Dx) Social History Tobacco Use Types [...] Sign Reading Time Taken Comments Blood Pressure 116/78 06/30/2014 1214 EDT Pulse 61 06/30/2014 1214 EDT Temperature - - Respiratory Rate - - Oxygen Saturation 99% 06/30/2014 1214 EDT Inhaled Oxygen Concentration - - Weight 77.6 kg (171 lb) 06/30/2014 1214 EDT Height 158.8 cm (5' 2.5) 06/30/2014 1214 EDT Body Mass Index 30.78 06/30/2014 1214 EDT documented in this encounter Discharge Diagnoses Diagnosis 758.0 DOWN'S SYNDROME[ICD-9-CM] documented in this encounter Progress Notes * Bertrand Rabago MD - 06/30/2014 1448 EDT [facility] CARDIOLOGY PROGRESS / FOLLOWUP NOTE - 06/30/2014 Neelima Corona MD [address], [address] [place] [address] Dear Neelima, On 06/30/2014, I had the pleasure of seeing Bertrand Lopez in our clinic for adults with Down syndrome. I last saw him on 05/16/2011. Bertrand has a history of Down syndrome, hypothyroidism, gout, cataracts, hip dysplasia, esotropia and hyperlipidemia. Since I last saw him, he is status post cataract resection in the left eye and hip replacement on the left side. In 2011, his family was worried that he may have had a cognitive decline. He was subsequently seen in the memory disorders clinic in 2011 and 2012. By 2013, his functional status had improved and he was extremely stable. He was accompanied by his [id number] on today's visit. According to her, Bipin has exhibited no evidence of cognitive decline. He seems to still function at a high level and she feels like his memory is intact. She also notes that he has done better since his surgical procedures. He now sees better and he is able to ambulate without discomfort. Medications: Levothyroxine 112 mcg daily. Probenecid. Multivitamin. Sennosides. Allergies: None known. Objective: Well-appearing gentleman, with features consistent with Down syndrome. Vitals: Blood pressure 116/78, heart rate 61 (regular), oxygen saturation 99% on room air, weight 171 pounds, height 62.5 inches and BMI 30.8. HEENT: Anicteric sclerae, normal conjunctivae, normal mucous membranes. Neck: No obvious thyromegaly. Lungs: Clear to auscultation bilaterally with good air movement. There were no wheezes or crackles. Cardiovascular: No jugular venous distention. Auscultation: Normal 1st and 2nd heart sounds. There was no systolic murmur, diastolic murmur, gallop, click or rub. Abdomen: Obese. There was no obvious hepatosplenomegaly. There was no tenderness. Extremities: No clubbing, cyanosis or edema. Assessment and Plan: Bertrand Lopez is a 38-year-old gentleman with Down syndrome. It is my opinion, that he is doing well from the standpoint of his Down syndrome. Paradoxically, patients with Down syndrome have cardiovascular [...] function extremely well on a day-to-day basis. I recommend that all adults with Down syndrome receive an annual influenza vaccination. I have put Bipin in our system to return in 5 years, but I would be delighted to see him sooner if I can be of any help. Please feel free to contact me with any questions or concerns. Sincerely, Bertrand Rabago MD, FACC 12 46 PM - Bertrand Rabago MD, [facility] ln Dictation ID: [id number] cc: Neelima Corona MD, [address], [address], [place] [address] * Bertrand Rabago MD - 06/30/2014 1234 EDT This office note has been dictated. documented in this encounter Plan of Treatment Not on file documented as of this encounter Visit Diagnoses Diagnosis Down syndrome- Primary Down's syndrome documented in this encounter Discontinued Medications Medication Sig Discontinue Reason Start Date End Da te diazepam (VALIUM) 10 mg tablet Take 1 Tab by mouth once for 1 dose Take one hour before laser eye surgery on 09/22/13. 09/18/2013 06/30/2014 diazepam (VALIUM) 10 mg tablet Take 1 Tab by mouth 3 times daily. 10/01/2013 06/30/2014 NAPROXEN SODIUM (ALEVE ORAL) Take by mouth as needed. 06/30/2014 documented as of this encounter Care Teams Editor Farm Journal Relationship Specialty Start Date End Date Neelima Corona MD [address] [place] [phone] PCP - General 03/10/11 documented as of this encounter
--- OUTSIDE RECORDS SUMMARY | 2023-10-08 02:10 | XMS_ITS | Encounter Summary ---
Author Organization [facility] Address [address] [place] [address] Care Team Providers Care Nurse Specialist Name Role Phone Neelima Corona MD Primary Care Provider [phone] Reason for Visit * Reason Onset Date Comments Eye Problem 07/02/2012 Encounter Details Date Type Department Care Team (Late st Contact Info) Description 07/02/2012 Telephone [facility] Ophthalmology - [address] [phone] Asher Hirsch MD [address] [facility], [address] [place] [address] Eye Problem Social History Tobacco Use Types Packs/Day Years [...] Telephone Encounter - Libra King RN - 07/02/2012 1322 EDT I spoke with Dr. Hirsch about this pt and reviewed the triage with him as well as showed him the appt notes from Dr. Gaines. Dr. Hirsch feels that keeping the appt on 08/28/12 is appropriate. I will now close this encounter as I told Sonia that I would only call her back if Dr. Ayers Bertrand should be seen sooner then that date. * Telephone Encounter - Libra King RN - 07/02/2012 1238 EDT I called pt's sister in law (Sonia Lopez) who is his caregiver to get more information: Nature of problem? Had cataract surgery in left eye done by Dr. Hirsch about 5 years ago. Director Ship at [facility] to her that his vision was cloudy due to a film over his left lens. Pt seems to function ok per caregiver. Not tripping/falling. Strains his eyes a little bit to see faraway. 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 Pt has a lazy right eye (keeping as his good eye). Doesn't drive. Pt is 'doing ok'. Sister in law coming with pt to this appt.Teresa states that she doesn't feel that this is an emergency. Family has a lot going on right now.Pt's sister can bring him in w/i the next 3 weeks if wants to be seen sooner (can't come in after that as she is having surgery end of july on herself and she brings him in for appts). Appt with Dr. Hirsch on 08/28/12 (Sonia will be able to bring him in for this appt) is this soon enough? Onset and Duration? Has been going on for a while and unsure how long this has been going on for. Is this an injury? no Pain? no Have you recently had eye surgery? no Are you having flashes/and or floaters? no Any sensitivity to light? no Any loss of vision/curtain/darkness/veil? no Any change in vision/double vision/blurred? no Any redness? no Who is your usual eye doctor? no Phone Number of Eye Doctor (if not FACP) no Any other pertinent information? no Please remember that a physician must approve if you are telling the patient to wait for an appointment. Please ask the patient where they are now, and where they can be reached for the next two hours. VERIFY THE PHONE NUMBERS REGARDLESS OF WHAT IS IN THE SYSTEM. Please ask how long it would take them to get to [facility], if they were to be told to come. I told Sonia that it sounds like the August 28, 2012 appt is appropriate since per her it is not affecting Bertrand's ADLs and he is not making complaints. I told her that I would confirm this with Dr. Hirsch and only call her back if Dr. Hirsch feels that her brother in law should be seen sooner. She agrees with this plan. * Telephone Encounter - Ainsley Westfall - 07/02/2012 1116 EDT [facility] called and requested Dr. Kelley follow PT as they were experiencing some cloudiness in their cataracts. PT has down syndrome and can still see out of his one good eye. Eugenia suggested this PT be called to be Triaged. Director Ship did not feel PT needed to be seen right away. Please advise. documented in this encounter Plan of Treatment Not on file documented as of this encounter Visit Diagnoses Not on filedocumented in this encounter Care Teams Nurse Specialist Relationship Specialty Start Date End Date Neelima Corona MD [address] [place] [phone] PCP - General 03/10/11 documented as of this encounter
--- OUTSIDE RECORDS SUMMARY | 2023-10-08 02:10 | XMS_ITS | Encounter Summary ---
Author Organization [facility] Address [address] [place] [address] Care Team Providers Care Concrete Rod Buster Name Role Phone Neelima Corona MD Primary Care Provider [phone] Reason for Visit * Reason Comments Eye Problem YAG capsulotomy Left eye; PCO Left eye. No drops. Pt took Valium prior to arriving at approx 1:45. No F/F. No pain. Encounter Details Date Type Department Care Team (Late st Contact Info) Description 09/22/2013 14:30 EDT Office Visit [facility] Ophthalmology - [address] [phone] Asher Hirsch MD [address] [facility], [address] [place] [address] Discharge Disposition: Auto Discharge Social History Tobacco Use Types Packs/Day Years Used Date Smoking Tobacco: Never Smokeless Tobacco: Never Alcohol Use Standard Drinks/Week Comments No 0 (1 standard drink = 0.6 oz pur e alcohol) Sex and Gender Information Value Date Recorded Sex Assigned at Not on file Gender Identity Not on file Sexual Orientation Not on file documented as of this encounter Discharge Diagnoses Diagnosis 366.53 AFTR-CATAR OBSCUR VISION[ICD-9-CM] documented in this encounter Ordered Prescriptions Prescription Sig Dispensed Refills Start Date End Da te diazepam (VALIUM) 10 mg tablet Take 1 Tab by mouth 3 times daily. 1 Tab 0 10/01/2013 06/30/2014 brimonidine (ALPHAGAN) 0.2 % ophthalmic solution Place 1 Drop into the left eye 2 times daily for 7 days. 1 Bottle 3 09/22/2013 09/29/2013 prednisoLONE (PRED FORTE) 1 % ophthalmic suspension One drop left eye qid for one week after laser surgery. 1 Bottle 3 09/22/2013 09/29/2013 documented in this encounter Discharge Disposition Disposition Code Departure Means Destination Auto Discharge documented in this encounter Progress Notes * Asher iHrsch MD - 09/22/2013 1442 EDT Department of Ophthalmology / Cataract/Cornea Office Visit Note Referring physician: Asher Hirsch Local Eye Rotary Pump Operator: Family Physician (PCP): Neelima Corona MD Other Physician: History of Present Illness: This HPI section must be documented by the physician (or scribe upon the dictation of the physician). It should not be documented independently by the lab support technician/scribe in the absence of the physician. Patient presents with ??? Eye Problem YAG capsulotomy Left eye; PCO Left eye. No drops. Pt took Valium prior to arriving at approx 1:45. No F/F. No pain. Pain: 0 / 10 Both Eyes Flashes: No Floaters: No Controls: Diabetes :No Hypertension:No Tobacco:No EXAMINATION: Base Eye Exam Visual Acuity Right Left Dist sc 20/50+2 -2 Dist ph sc NI Method: Snellen - Linear Tonometry Right Left Pressure 12 12 Method: Palpation Time: 14:31 Pupils Dark Light React APD Right 3 3 Minimal None Left 3 3 Minimal None Neuro/Psych Oriented x3: Yes Mood/Affect: Normal Dilation Left eye: 1.0% Mydriacyl, 2.5% Shane Synephrine @ 14:33 Slit Lamp and Fundus Exam Slit Lamp Exam Right Left Lids/Lashes Normal Conjunctiva/Sclera White and quiet Cornea Clear Anterior Chamber Deep and quiet Iris Round and reactive Lens Posterior chamber intraocular lens,dense Posterior capsular opacification Fundus Exam Comments: Fundus exam deferred due to concern for maintaining good cooperation with the YAG capsulotomy procedure today OPHTHALMOLOGY TESTING: [To insert test results, first enter the results in Doc Flowsheet and then use dot phrase .OPHTESTEXAM to choose the results module(s) to pull into this note] IMPRESSION / PLAN: Encounter Diagnoses Name Primary? PCO (posterior capsular opacification) Yes ??? Pseudophakia ??? Total or mature senile cataract Plan: Informed surgical consent was previously obtained by contacting the patient's power of attorney recruiter for health care. YAG capsulotomy was performed for his left eye today. He took valium 10 mg aboutone hour prior to the procedure, and was cooperative for the procedure. He will use prednisolone acetate 1% qid and brimonidine 0.2% bid left eye. F/u in one week for a dilated eye exam. His caregiver was advised to give him a valium 10 mg tablet about one hour before that exam. Oph Retinal Laser Note Bertrand Lopez is here and consented to the following: Procedure YAG Laser Capsulotomy Indication: Secondary cataract (obscuring vision) Side: Left Eye Surgeon: Asher Hirsch MD No Known Allergies There were no vitals taken for this visit. [State Pre Laser or Post Laser in MD Comments in Doc Flowsheet. After 2nd reading is done, refresh the note to pull in new values] PROCEDURE NOTE: Eye Drops: Anesthesia Type: Topical Proparacine HCl 0.4% Ophthalmic solution The patient was taken to the laser room where a total of 116 exposures were given at 1.0-2.0 millijoules. Lens used: Blayne caps lens. I certify that a Final Verification has been performed by the surgical team immediately prior to this procedure to verbally confirm patient identity, procedure and when applicable, site. Name of Feeder Driver: NM Complications/Disposition: The patient tolerated the procedure well and left the office in good condition. The patient will call with questions or concerns. Scribe Attestation: I am scribing for Asher Hirsch MD while he is personally performing the service. Federico Price (Scribe) Time spent: documented in this encounter Plan of Treatment Not on file documented as of this encounter Visit Diagnoses Diagnosis PCO (posterior capsular opacification)- Primary After-cataract, unspecified Pseudophakia Lens replaced by other means Total or mature senile cataract documented in this encounter Eye Exam Visual Acuity (Snellen - Linear) Right eye Left eye Dist sc 20/50+2 -2 Dist ph sc NI Tonometry (Palpation, 14:31) Right eye Left eye Pressure 12 12 Pupils Dark Light React APD Right eye 3 3 Minimal None Left eye 3 3 Minimal None Neuro/Psych Oriented x3: Yes Mood/Affect: Normal Dilation Left eye: 1.0% Mydriacyl, 2. 5% Shane Synephrine @ 14:33 Slit Lamp Exam Right eye Left eye Lids/Lashes Normal Conjunctiva/Sclera White and adrian et Cornea Clear Anterior Chamber Deep and quiet Iris Round and reacti ve Lens Posterior chambe r intraocular lens,dense Posterior capsular opacification Fundus Exam Fundus exam deferred due to concern for maintaining good cooperation with the YAG capsulotomy procedure today Care Teams Concrete Rod Buster Relationship Specialty Start Date End Date Neelima Corona MD [address] [place] [phone] PCP - General 03/10/11 documented as of this encounter
--- OUTSIDE RECORDS SUMMARY | 2023-10-08 02:10 | XMS_ITS | Encounter Summary ---
Author Organization [facility] Address [address] [place] [address] Care Team Providers Care Stage Rigger Name Role Phone Neelima Corona MD Primary Care Provider [phone] Encounter Details Date Type Department Care Team (Late st Contact Info) Description 07/04/2011 Phlebotomy Only [address] [address] [address], Outpatient Memory loss Social History Tobacco Use Types Packs/Day Years Used Date Smoking Tobacco: Never Smokeless Tobacco: Never Alcohol Use Standard Drinks/Week Comments No 0 (1 standard drink = 0.6 oz pur e alcohol) Sex and Gender Information Value Date Recorded Sex Assigned at Not on file Gender Identity Not on file Sexual Orientation Not on file documented as of this encounter Plan of Treatment Not on file documented as of this encounter Procedures Procedure Name Priority Date/Time Associated Diagnosis Comments SYPHILIS SEROLOGY Routine 07/04/2011 14: 46 EDT Memory loss COMPLETE BLOOD COUNT AND DIFFERENTIAL Routine 07/04/2011 14:46 EDT Memory loss FOLATE Routine 07/04/2011 14:46 EDT Memory loss VITAMIN B12 Routine 07/04/2011 14:46 EDT Memory loss COMPREHENSIVE METABOLIC PANEL (CMP) Routine 07/04/2011 14:46 EDT Memory loss documented in this encounter Results * SYPHILIS SEROLOGY (07/04/2011 14:46 EDT) Pathologist [facility] Syphilis Serology Interpretation: Nonreactive [facility] Comment:Reference Range: Non reactive Blood specimen (specimen) 07/04/2011 14:46 EDT 07/04/2011 15:46 EDT Bertrand Butler MD IMMUNOLOGY AND S EROLOGY ORDERABLES Performing Organization Address [facility] de Phone Number [facility] [address] [place] [address] * VITAMIN B12 (07/04/2011 14:46 EDT) Pathologist [facility] Vitamin B-12 542 211 - 911 pg/ml [facility] Blood specimen (specimen) 07/04/2011 14:46 EDT 07/04/2011 15:46 EDT Bertrand Butler MD CHEMISTRY & BLOO D GAS ORDERABLES Performing Organization Address [facility] Phone Number [facility] [address] [place] [address] * FOLATE (07/04/2011 14:46 EDT) [facility] Folate >24.0 ng/mL [facility] Comment: Deficient: ??Less than 3.4 ng/mL Indeterminate: ??3.4-5.4 ng/mL Normal: ??Greater than 5.4 ng/mL Blood specimen (specimen) 07/04/2011 14:46 EDT 07/04/2011 15:46 EDT Bertrand Butler MD CHEMISTRY & BLOO D GAS ORDERABLES Performing Organization Address [facility] de Phone Number [facility] [address] [place] [address] * (ABNORMAL) HEMAGRAM AND DIFFERENTIAL (07/04/2011 14:46 EDT) Pathologist [facility] WBC 4.38 4.0 - 10.4 K/cmm [facility] RBC 4.55 4.36 - 5.78 M/cmm [facility] Hemoglobin 15.3 13.8 - 17.3 gm/dl [facility] HCT 45.5 39.5 - 50.2 % [facility] MCV 100(H) 81 - 95 fl [facility] MCH 33.6(H) 27.6 - 33.0 pg [facility] MCHC 33.7 32.8 - 36.4 gm/dl [facility] PLT 236 141 - 320 K/cmm [facility] RDW-CV 15.2(H) 11.8 - 14.1 % [facility] % Neutrophils 60.8 45.5 - 79.7 % [facility] % Lymphocytes 30.1 15.0 - 46.8 % [facility] % Monocytes 8.1 1.8 - 12.0 % [facility] % Eosinophils 0.4(L) 0.6 - 6.9 % [facility] % Basophils 0.6 0.2 - 1.4 % [facility] ABS Neutrophils 2.66 2.20 - 8.85 K/cmm [facility] ABS Lymphs 1.32 1.09 - 3.30 K/cmm [facility] ABS Monocytes 0.35 0.1 - 0.8 K/cmm [facility] ABS Eosinophils 0.02(L) 0.03 - 0.61 K/cmm [facility] ABS Basophils 0.03 0.01 - 0.11 K/cmm [facility] Type of Diff: Automated [facility] Blood specimen (specimen) 07/04/2011 14:46 EDT 07/04/2011 15:46 EDT Bertrand Butler MD PACKAGES & DNA P XAVI ORDERABLES [facility] [address] [place] [address] * COMPREHENSIVE METABOLIC PANEL (CMP) (07/04/2011 14:46 EDT) Potassium 4.6 3.5 - 5.0 mEq/L [facility] Sodium 142 136 - 145 mEq/L [facility] Chloride 103 96 - 110 mEq/L [facility] CO2 27 24 - 32 mEq/L [facility] Total Alkaline Phosphatase 63 38 - 126 U/L [facility] Bilirubin, Total <0.5 0.2 - 1.3 mg/dl [facility] AST 33 15 - 46 U/L [facility] ALT 60 21 - 72 U/L [facility] Albumin 4.0 3.4 - 4.9 g/dl [facility] Total Protein 7.0 6.5 - 8.3 g/dl [facility] Creatinine 0.98 0.66 - 1.25 mg/dl [facility] GFR, Calculated >60 >60 ml/min/1.7 3m2 [facility] BUN 17 10 - 26 mg/dl [facility] Calcium 8.7 8.5 - 10.5 mg/dl [facility] Calculated Calcium 9.1 8.5 - 10.5 mg/dl [facility] Glucose, Serum 81 70 - 100 mg/dl [facility] Fasting? No [facility] Blood specimen (specimen) 07/04/2011 14:46 EDT 07/04/2011 15:46 EDT Bertrand Butler MD CHEMISTRY & BLOO D GAS ORDERABLES Performing Organization Address City/State/[facility] Co de Phone Number [facility] [address] [place] [address] documented in this encounter Visit Diagnoses Diagnosis Memory loss documented in this encounter Care Teams Stage Rigger Relationship Specialty Start Date End Date Neelima Corona MD [address] [place] [phone] PCP - General 03/10/11 documented as of this encounter
--- OUTSIDE RECORDS SUMMARY | 2023-10-08 02:10 | XMS_ITS | Encounter Summary ---
Author Organization [facility] Address [address] [place] [address] Care Team Providers Care Carton Machine Operator Name Role Phone Neelima Corona MD Primary Care Provider Reason for Visit * Reason Onset Date Comments Discuss Surgery 08/29/2013 Called to talk w abner Hirsch about his brother's surgery. Encounter Details Date Type Department Care Team (Late st Contact Info) Description 08/29/2013 Telephone [facility] Ophthalmology - [facility] [address] [place] [address] Asher Hirsch MD [address] [place] [address], [address] [place] [address] Discuss Surgery (Called to talk with Dr. Hirsch about his brother's surgery. ) Social History Tobacco Use Types Packs/Day Years [...] encounter Miscellaneous Notes * Telephone Encounter - Melisa Mart - 09/04/2013 0818 EDT Bo Lopez tried calling this morning concerning his brothers surgery. Patient is Bertrand John. He left an alternative number to reach him directly after 4:30pm which is [phone] documented in this encounter Plan of Treatment Not on file documented as of this encounter Visit Diagnoses Not on filedocumented in this encounter Care Teams Carton Machine Operator Relationship Specialty Start Date End Date Neelima Corona MD [address] [place] [phone] PCP - General 03/10/11 documented as of this encounter
--- OUTSIDE RECORDS SUMMARY | 2023-10-08 02:10 | XMS_ITS | Encounter Summary ---
Author Organization [facility] Address [address] [place] [address] Care Team Providers Care Soda Worker Name Role Phone Sandie Abbasi MD Primary Care Provider Reason for Visit * Reason Comments Eye Problem s/p CE/IOL left eye 08/27/06 with h/o dense cataract right eye and amblyopia right eye. Patient saw chief diversity officer at [facility] in March, was told patient's vision cloudy due to a film over his left lens. Pt seems to function ok per caregiver. Not tripping/falling. Strains his eyes a little bit to see far away. 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 No eye pain. No flashes or floaters. Not using gtt. Encounter Details Date Type Department Care Team (Late st Contact Info) Description 08/28/2012 13:00 EDT Office Visit [facility] Ophthalmology - [address] [id number] Asher Hirsch MD [address] [facility], [address] [place] [address] Social History Tobacco Use Types Packs/Day Years Used Date Smoking Tobacco: Never Smokeless Tobacco: Never Alcohol Use Standard Drinks/Week Comments No 0 (1 standard drink = 0.6 oz pur e alcohol) Sex and Gender Information Value Date Recorded Sex Assigned at Not on file Gender Identity Not on file Sexual Orientation Not on file documented as of this encounter Progress Notes * Coby Chan - 08/28/2012 0271 EDT I have sent this note to Dr. Gaines * Asher Hirsch MD - 08/28/2012 5595 EDT Department of Ophthalmology / Cataract/Cornea Office Visit Note Referring physician: Sandie Abbasi Local Eye Smoke Control Supervisor: Family Physician (PCP): SANDIE ABBASI MD Other Physician: History of Present Illness: This HPI section must be documented by the physician (or scribe upon the dictation of the physician). It should not be documented independently by the data reduction technician/scribe in the absence of the physician. Patient presents with ??? Eye Problem Here for evaluation of PCO left eye diagnosed in March 2012, s/p CE/IOL left eye 08/27/06 with h/odense cataract right eye and amblyopia right eye. Patient saw chief diversity officer at [facility], was told patient's vision cloudy due to a film over his left lens. Pt seems to function okper caregiver. Not tripping/falling. Strains his eyes a little bit to see far away. 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 No eye pain. No flashes or floaters. Not using gtt. Pain: 0 / 10 Both Eyes Flashes: No Floaters: No Controls: Diabetes :No Hypertension:No Tobacco:No EXAMINATION: Base Ophthalmology Exam Visual Acuity Right Left Dist cc CF @ 1' 20/30 -2 Dist ph cc NI Near cc Unable J2 Method: Snellen - Linear Correction: Glasses Tonometry Right Left Pressure 17 16 Method: Applanation Time: 13:18 Wearing Rx Sphere Cylinder Poynette Horz Prism Right +1.75 Sphere 1B down Left +2.00 +0.75 133 Type: Reading Dilation Both eyes: 1.0% Mydriacyl, 2.5% Phenylephrine @ 13:18 Pupils APD Right None Left None Main Ophthalmology Exam Slit Lamp Exam Right Left Lids/Lashes Normal Normal Conjunctiva/Sclera White and quiet White and quiet Cornea Clear Clear Anterior Chamber Deep and quiet Deep and quiet Iris Round and reactive Round and reactive Lens Total Cataract Posterior chamber intraocular lens, 4+ Posterior capsular opacification Vitreous Normal Fundus Exam Right Left C/D Ratio 0.3 Periphery unable-poor cooperation Neuro/Psych Oriented x3: Yes Mood/Affect: Normal OPHTHALMOLOGY TESTING: [To insert test results, first enter the results in Doc Flowsheet and then use dot phrase .OPHTESTEXAM to choose the results module(s) to pull into this note] IMPRESSION / PLAN: Encounter Diagnoses Name Primary? Posterior capsular opacification, left ??? Other and combined forms of senile cataract Yes ??? Amblyopia, unspecified ??? Esotropia Plan: Discussed risks and benefits of Yag Laser Capsulotomy for his left eye with his mother - we will defer the procedure for now, despite the dense posterior capsular opacification in his left eye,as he has no complaints regarding his vision, and appears to be functioning well. Also discussed cat aract surgery for his right eye, which would have low likelihood of improving his visual functioning, due to dense amblopia with right esotropia, but cataract surgery for his right eye would allow a backup, to allow him to have ambulatory vision in case he ever loses vision in his left eye. The risks of cataract surgery for his right eye are [id number] due to the dense cataract in theeye, however. Return to clinic in 1 year for dilated exam, or sooner if the patient or his caregivers note that his vision is worsening. We will send this note to Dr. Gaines at [facility]. Scribe Attestation: I am scribing for Asher Hirsch MD while he is personally performing the service. Karolina Ewing (Scribe) Time spent: documented in this encounter Plan of Treatment Not on file documented as of this encounter Visit Diagnoses Diagnosis Other and combined forms of senile cataract- Primary Posterior capsular opacification, left After-cataract, unspecified Amblyopia, unspecified Esotropia Esotropia, unspecified documented in this encounter Eye Exam Visual Acuity (Snellen - Linear) Right eye Left eye Dist cc CF @ 1' 20/30 -2 Dist ph cc NI Near cc Unable J2 Correction: Glasses Tonometry (Applanation, 13:18) Right eye Left eye Pressure 17 16 Pupils APD Right eye None Left eye None Visual Diaz Unable - SP Extraocular Movement Right eye Left eye Full Full Right esotropia Neuro/Psych Oriented x3: Yes Mood/Affect: Normal Dilation Both eyes: 1.0% Mydriacyl, 2 .5% Phenylephrine @ 13:18 Slit Lamp Exam Right eye Left eye Lids/Lashes Normal Normal Conjunctiva/Sclera White and quiet White and adrian et Cornea Clear Clear Anterior Chamber Deep and quiet Deep and quiet Iris Round and reactive Round and omar ctive Lens Total Cataract Posterior chambe r intraocular lens, 4+ Posterior capsular opacification Vitreous Normal Fundus Exam Right eye Left eye C/D Ratio 0.3 Periphery unable-poor coop eration Wearing Rx Sphere Cylinder Poynette Horz Prism Right eye +1.75 Sphere 1B down Left eye +2.00 +0.75 133 Type: Reading Care Teams Soda Worker Relationship Specialty Start Date End Date Sandie Abbasi MD [address] [place] [phone] PCP - General 03/10/11 documented as of this encounter
--- OUTSIDE RECORDS SUMMARY | 2023-10-08 02:10 | XMS_ITS | Encounter Summary ---
Author Organization [facility] Address [address] [place] [address] Care Team Providers Care Payroll Machine Operator Name Role Phone Neelima Corona MD Primary Care Provider [phone] Encounter Details Date Type Department Care Team (Late st Contact Info) Description 07/06/2020 Lab Requisition [facility] Pathology & Laboratory Medicine - [facility] [address] [place], [place] [id number] Outr Resulting Lab, Provider Social History Tobacco Use Types Packs/Day Years [...] Procedure Name Priority Date/Time Associated Diagnosis Comments HIV 1/2 ANTIGEN AND ANTIBODY, 4TH GENERATION Routine 07/05/2020 11:29 EDT documented in this encounter Results * HIV 1/2 ANTIGEN AND ANTIBODY, 4TH GENERATION (07/05/2020 11:29 EDT) HIV 1 and 2 Antibody/p24 Antigen, 4th Generation Negative Negative 07/07/2020 10:33 EDT [facility] Comment: If acute HIV-1 infection is suspected in a high risk ??patient, submit plasma specimen for HIV-1 RNA quantitation test. Fourth Generation assay performed on the Siemens Centaur. Blood VENOUS BLOOD / Unknown 07/05/2020 11:29 EDT 07/06/2020 15:45 EDT Provider Outr Resulting Lab IMMUNOLOGY A ND SEROLOGY ORDERABLES [facility] [address] [place] [address] documented in this encounter Visit Diagnoses Not on filedocumented in this encounter Care Teams Payroll Machine Operator Relationship Specialty Start Date End Date Neelima Corona MD [address] [place] [phone] PCP - General 03/10/11 documented as of this encounter
--- OUTSIDE RECORDS SUMMARY | 2023-10-08 02:10 | XMS_ITS | Encounter Summary ---
Author Organization [facility] Address [address] [place] [address] Care Team Providers Care Oracle Database Consultant Name Role Phone Neelima Corona MD Primary Care Provider [phone] Reason for Visit * Reason Comments Follow-up VPD s/p Yag capsulot gurinder Left eye (09/22/2013). Used prednisolone acetate 1% -/4; Brimonidine 0.2% -/2 for one week and done now. Pt took Valium 10mg before today's appointment approx 11:45. One floater after Yag but has now gone. No flashes. No pain. Encounter Details Date Type Department Care Team (Late st Contact Info) Description 10/01/2013 13:00 EDT Office Visit [facility] Ophthalmology - [address] [id number] Asher Hirsch MD [address] [place] [address], [address] [place] [address] Social History Tobacco Use Types [...] as of this encounter Discharge Diagnoses Diagnosis 366.17 MATURE CATARACT[ICD-9-CM] V43.1 LENS REPLACEMENT NEC[ICD-9-CM] documented in this encounter Progress Notes * Asher Hirsch MD - 10/01/2013 8855 EDT Department of Ophthalmology / Cataract/Cornea Office Visit Note Referring physician: Asher Hirsch Local Eye Core Composer Machine Tender: Family Physician (PCP): Neelima Corona MD Other Physician: History of Present Illness: This HPI section must be documented by the physician (or scribe upon the dictation of the physician). It should not be documented independently by the central sterilization technician/scribe in the absence of the physician. Patient presents with ??? Follow-up VPD s/p Yag capsulotomy Left eye (09/22/2013). Used prednisolone acetate 1% -/4; Brimonidine 0.2% -/2 for one week and done now. Pt took Valium 10mg before today's appointment approx 11:45. One floater after Yag but has now gone. No flashes. No pain. Pain: 0 / 10 Both Eyes Flashes: No Floaters: No Controls: Diabetes :No Hypertension:No Tobacco:No EXAMINATION: Base Eye Exam Visual Acuity Right Left Dist sc LP? difficult to assess 20/40+2 -1 Dist ph sc NI Method: Snellen - Linear Tonometry Right Left Pressure 14 16 Method: Palpation Time: 13:47 Comments: Attempted tonopen Left eye 85 mmHg 15% margin of erro Meed teens by palpation, SP Pupils Dark Light React APD Right 3 3 Minimal None Left 3 3 Minimal None Neuro/Psych Oriented x3: Yes Mood/Affect: Normal Dilation Both eyes: 1.0% Mydriacyl, 2.5% Shane Synephrine @ 13:50 Comments: Angles checked with hand-held slit lamp Slit Lamp and Fundus Exam Slit Lamp Exam Right Left Lids/Lashes Normal Conjunctiva/Sclera White and quiet Cornea Clear Anterior Chamber Deep and quiet Iris Round and reactive Lens Posterior chamber intraocular lens clear post Yag caps Vitreous Normal Fundus Exam Right Left Disc Normal C/D Ratio 0.3 Macula Normal Vessels Normal Periphery Normal OPHTHALMOLOGY TESTING: [To insert test results, first enter the results in Doc Flowsheet and then use dot phrase .OPHTESTEXAM to choose the results module(s) to pull into this note] IMPRESSION / PLAN: Encounter Diagnoses Name Primary? Total or mature senile cataract Yes ??? Pseudophakia -doing well s/p YAG capsulotomy left eye Plan: No need to resume prednisolone or brimonidine gtt. F/u six months for a dilated exam, and likely then annually. Will defer cataract surgery right eye due to good visual functioning post YAG capsulotomy left eye and presumed poor potential for improved visual acuity right eye with cataract surgery due to longstanding poor visual acuity in the right eye with strabismus. Cataract surgery righteye could also result in diplopia, due to large esotropia in the right eye. We will not plan to pretreat him with Valium prior to future appointments. Scribe Attestation: I am scribing for Asher Hirsch MD while he is personally performing the service. Federico Price (Scribe) Time spent: documented in this encounter Plan of Treatment Not on file documented as of this encounter Visit Diagnoses Diagnosis Total or mature senile cataract- Primary Pseudophakia Lens replaced by other means documented in this encounter Eye Exam Visual Acuity (Snellen - Linear) Right eye Left eye Dist sc LP? difficult to assess 20/40+2 -1 Dist ph sc NI Tonometry (Palpation, 13:47) Right eye Left eye Pressure 14 16 Attempted tonopen Left eye 85 mmHg 15% margin of erro Meed teens by palpation, SP Pupils Dark Light React APD Right eye 3 3 Minimal None Left eye 3 3 Minimal None Neuro/Psych Oriented x3: Yes Mood/Affect: Normal Dilation Both eyes: 1.0% Mydriacyl, 2 .5% Shane Synephrine @ 13:50 Angles checked with hand-held slit lamp Slit Lamp Exam Right eye Left eye Lids/Lashes Normal Conjunctiva/Sclera White and adrian et Cornea Clear Anterior Chamber Deep and quiet Iris Round and reacti ve Lens Posterior chambe r intraocular lens clear post Yag caps Vitreous Normal Fundus Exam Right eye Left eye Disc Normal C/D Ratio 0.3 Macula Normal Vessels Normal Periphery Normal Care Teams Oracle Database Consultant Relationship Specialty Start Date End Date Neelima Corona MD [facility] [address] [phone] PCP - General 03/10/11 documented as of this encounter
--- OUTSIDE RECORDS SUMMARY | 2023-10-08 02:10 | XMS_ITS | Encounter Summary ---
Author Organization [facility] Address [address] [place] [address] Care Team Providers Care Shuttle Spotter Name Role Phone Neelima Corona MD Primary Care Provider [phone] Reason for Visit * Reason Comments Memory Loss Encounter Details Date Type Department Care Team (Late st Contact Info) Description 07/04/2011 13:00 EDT Office Visit [facility] Memory Program - Medical Office Building [address] [place] [id number] Erin Flood, PhD [address] [place] [address] Medical Office [facility], [address] [place] [phone] Bertrand Butler MD [address] [place] [address] Medical Office [facility], [address] [phone] DS (Down's syndrome) Discharge Disposition: Auto Discharge Social History Tobacco [...] file documented as of this encounter Discharge Disposition Disposition Code Departure Means Destination Auto Discharge documented in this encounter Progress Notes * Erin Flood, PhD - 07/05/2011 0929 EDT NEUROLOGY HEALTH CARE SERVICE [facility] Medical Office Building [address] [facility], [address] [place] [address] NEW PATIENT EVALUATION - 07/04/2011 PATIENT PROFILE: Mr Lopez is a 35-year-old right-handed man with Down syndrome. He lived with his parents until their and now lives with a brother and wdvseo-ym-hge in [place]. He continuesto receive services through [facility]. He has a supervised job placement through [facility] 5 hours per week and has an outting another day. [facility] the [facility]. Premorbid psychiatric history is otherwise negative andthere is no known family psychiatric history. HISTORY OF PRESENT ILLNESS: Mr Lopez reports that he is here to have a head scan. He does not report memory problems, but does say that he has some difficulty finding words. He does not endorse changes in other areas of cognitive function. Mr Lopez's sister and yeslgn-ij-cgx report that he used all of his school eligibility and receivedgood practical training there. His parents also provided a stimulating life in addition to serviceshe received through an [facility]. Mr Lopez had written language skills. He liked to read the newspaper and often copied stories that he liked and made other written lists, such as list of baseball cards he owned or lists of model cars. He had chores around the house, such as doing his own laundry, cleaning his own room and taking out the trash. He has a financial guardian, but could count out money to make purchases, albeit slowly. He was independent for self care and could tell his wnjrpm-uy-cfa when he was getting low on toiletries and she needed to purchase something new for him. Mr Lopez's sister and ghvcmc-uk-xek report that the State recommended this evaluation, because of the patient's Down syndrome and age. Also, his speech has become less intelligible over the past 3 to 4 years. There have been some other declines. 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 His family may occasionally find him staring at a blank TV screen. He reads only the sports section in the newspaper now and is writing much less. He needs more prompts and reminders to take his medication or take out the trash. His gflooz-qp-vtm needs to check up on what personal items he needs. Mr Lopez has always had imaginary friends and has always liked to play various pretend games. There is no change in this. He does become agitated if the family has to ask him to repeat himself more than once because of declining intelligibility. BEHAVIORAL OBSERVATIONS AND MENTAL STATUS EXAMINATION: Mr Lopez is a casually dressed, cleanly groomed man appearing his stated age who is alert and responsive. He has language skills and is responsive verbally, but intelligibility is, indeed, sometimes poor. Sometimes this is aided by knowing what the target answer should be. For example, it was possible to see that he does have an idea of the names of his medications, using a medication list in addition to what he stated. Affect is shallow. Mood is described as happy. The patient does not report problems with sleep, appetite, energy or interest in activities. He has no suicidal ideation. There is no evidence of delusions or hallucinations. Thought process is concrete. NEUROPSYCHOLOGICAL EVALUATION ORIENTATION AND ATTENTION: Mr Lopez is grossly oriented to person and place. He is oriented to time, with some guessing. Digit span is 5 forward, 4 backward. He cannot do any serial 7s, but can spell world backward. Simple cognitive tracking is impaired on other testing. MEMORY: Immediate and delayed recall of short stories falls below the 1st percentile. Immediate visuospatial recall falls at the 2nd percentile, with delayed recall at below the 1st percentile. The patient cannot recall any of 3 words after a brief distraction. LANGUAGE: Spontaneous speech is dysarthric. Auditory comprehension is mildly impaired by virtue of general conceptualization deficits. When the patient does not understand a question, he tends to respond with sometimes instead of asking for clarification. The patient cannot reliably execute 2 and3-step commands. Confrontation naming is mildly impaired, but not beyond what one might expect for the patient's vocabulary and exposure level. Verbal fluency is low. The patient is able to write a simple, grammatically correct sentence. VISUOSPATIAL FUNCTIONS: Block design is impaired. There is marked constructional disturbance in copying geometric figures. The patient is not able to correctly number the face of a clock or draw hands to show a designated time. REASONING: Similarities, practical reasoning and proverb interpretation are impaired. SUMMARY: Mr Lopez is a 35-year-old man with Down syndrome who has functioned at a fairly high level with respect to language skills. The family reports that there has been decline in this area over the past 3 to 4 years. He currently scores 17 on the MMSE and 26 on the Alzheimer's Disease Assessment Scale. The changes in daily life are certainly of concern, although it is difficult to make a diagnosis of Alzheimer's disease at this time. He may fit the criteria for mild cognitive impairment. Dr Butler will establish followup plans after he meets with the patient. TOTAL TIME: Three hours. Forty [place] [id number] and included testing that was separate from the testing done by the durable medical equipment technician. Electronically Signed by Erin Flood, Ph.D. 07/23/2011 17:48 Erin Flood, Ph.D. Licensed Psychologist-Doctorate - Erin Flood, Ph.D. - [facility] Job ID: SM Doc ID: [id number] Ext Doc ID: [id number] cc: * Erin Flood, PhD - 07/04/2011 1345 EDT This office note has been dictated. documented in this encounter Plan of Treatment Not on file documented as of this encounter Visit Diagnoses Diagnosis DS (Down's syndrome) Down's syndrome documented in this encounter Care Teams Shuttle Spotter Relationship Specialty Start Date End Date Neelima Corona MD [facility] [address] [phone] PCP - General 03/10/11 documented as of this encounter
--- OUTSIDE RECORDS SUMMARY | 2023-10-08 02:10 | XMS_ITS | Encounter Summary ---
Author Organization [facility] Address [address] [place] [address] Care Team Providers Care Convenience Store Manager Name Role Phone Neelima Corona MD Primary Care Provider [phone] Reason for Visit * Reason Comments Memory Loss Encounter Details Date Type Department Care Team (Late st Contact Info) Description 07/04/2011 15:00 EDT Office Visit [facility] Memory Program - Medical Office Building [address] [place] [address] Bertrand Butler MD [address] [facility] Medical Office Building, [address] [place] [phone] DS (Down's syndrome) (Primary Dx) Discharge Disposition: Auto Discharge Social History Tobacco [...] Sign Reading Time Taken Comments Blood Pressure 116/70 07/04/2011 1538 EDT Pulse 72 07/04/2011 1538 EDT Temperature - - Respiratory Rate - - Oxygen Saturation - - Inhaled Oxygen Concentration - - Weight - - Height - - Body Mass Index - - documented in this encounter Discharge Disposition Disposition Code Departure Means Destination Auto Discharge documented in this encounter Progress Notes * Bertrand Butler MD - 07/04/2011 1500 EDT This office note has been dictated. documented in this encounter Consult Notes * Bertrand Butler MD - 07/05/2011 0922 EDT NEUROLOGY HEALTH CARE SERVICE [facility] Medical Office Building [address] [place] [address], [address] [place] [address] CONSULTATION - 07/04/2011 REASON FOR CONSULTATION: Memory decline in the setting of Down syndrome. CONSULTATIVE SOURCE: I was asked to see this patient in consultation by Neelima Corona MD. The [facility] was also interested in establishing a cognitive baseline in this patient. PATIENT PROFILE: Bertrand Lopez is a 35-year-old white single man, currently living with his brother, ygclyr-vr-krx, 7-year-old nephew and 5-year-old niece in [place], [place]. Mr Lopez has never and has no children. He completed the equivalent of high school and continues to work and Fridays at a local [employer]. He is right handed and Cuban is his [place] language. There is no significant premorbid psychiatric history. ALLERGIES: No known medical allergies. MEDICATIONS: Sennoside 1 tablet b.i.d. Levothyroxine 112 mcg. Probenecid daily. Multivitamin daily. HISTORY OF PRESENT ILLNESS: Mr Lopez reports that he is here to have a head scan. He does not report memory problems, but does say that he has some difficulty finding words. He does not endorse changes in other areas of cognitive function. Mr Lopez's sister and gagcpf-uc-ttv report that he used all of his school eligibility and receivedgood practical training there. His parents also provided a stimulating life for here. In addition to services he received through [facility]. Mr Lopez had written language skills. He likes to read the newspaper and often copied [...] for self care and could tell his frzpxr-up-eki when he was getting low on toiletries and she needed to purchase something new for him. Mr Lopez's sister and hwtrqg-ob-noh reports that the state recommended this evaluation, in part because of the patient's Down syndrome and age. Also, his speech has become less intelligible over thepast 3 to 4 years. There have been some other declines. 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 They may occasionally find him staring at a blank TV screen. He reads only the sports section in the newspaper now. He is writing much less. He needs more prompts and reminders to take his medication or take out the trash. His czspxr-mt-ekn needs to check up onwhat personal items he needs. Mr Lopez has always had imaginary friends and has always liked to play various pretend games. There is no change in this. He does become agitated if the family has to ask him to repeat himself more than once because of declining intelligibility. MEDICAL HISTORY: The problem list includes Down syndrome, dyslipidemia, hypothyroidism, gout, bilateral cataracts status post removal, right esotropia, seborrheic dermatitis, and rosacea. Mr Lopez has a history of superficial phlebitis. He has had a colonoscopy but no other surgical procedures besides cataract removal. There is no history of trauma. Mr Lopez has never smoked cigarettes and he does not use alcohol. REVIEW OF SYSTEMS: A review of systems was not completed. FAMILY HISTORY: Noncontributory with regard to current complaint. PHYSICAL EXAMINATION: General: The blood pressure in the left upper extremity while sitting was 116/70. Pulse was 72 and regular. Weight was not determined. Mr Lopez displayed the phenotype of Down syndrome. He was in no acute distress, and was cooperative for the interview and examination. Grooming and hygiene were unremarkable. There were no hallucinations, delusions or evidence of depression. Carotid bruits were not heard. Cardiac exam revealed no abnormalities and lung diaz were clear. Examination of head and neck functions revealed no thyromegaly and no evidence of lymph nodes. The throat was clear as were the eardrums. Extremities were nontender, as were joints. The skin was clear. Neurologic: The Hachinski ischemic score was 0. Cranial nerve examination revealed the following. Pupils were equal and reactive to light and accommodation. There was a right esotropia noted. Diaz were full to confrontation. The face was symmetric at rest and moved symmetrically. Jaw power was full and there was no evidence of weakness of the tongue or fasciculations. Shoulder shrugging was full. Motor exam revealed full strength, no abnormalities of tone and normal bulk. No involuntary movements were noted. Reflexes were 2+ throughout with downgoing toes. Gross sensory examination to pin and cotton was unremarkable. Coordination as tested by finger to nose, rapid rhythmic alternating movements was normal. Station and gait were unremarkable. ADDITIONAL PERTINENT INFORMATION: A CT scan of the brain and laboratory studies germane to a memoryevaluation were completed this afternoon and showed non- specific or normal results.. ASSESSMENT: Mr Lopez has a mildly worrisome history suggesting the early stages of cognitive decline. He maintains his functional routine quite well and there have been no behavioral disturbances. Although given the history of Down syndrome, Mr Lopez is at high risk for eventually developing Alzheimer's disease, I would not make this diagnosis at this point, and I would not start Mr Lopez on any medical treatment. I believe the best course of action is to monitor this situation with a comprehensive reevaluation in about one year. PLAN: 1. After I completed my evaluation, I met with Mr Lopez, his mxilez-wj-zvu and sister and providedmy assessment as above. 2. I answered questions. 3. Follow up for a comprehensive reevaluation in one year. Electronically Signed by Bertrand Butler MD 07/05/2011 12:43 Bertrand Butler MD Air Lift Operator - Bertrnad Butler MD - [facility] Job ID: SM Doc ID: [id number] Ext Doc ID: [id number] cc: Neelima Corona MD documented in this encounter Plan of Treatment Not on file documented as of this encounter Visit Diagnoses Diagnosis DS (Down's syndrome)- Primary Down's syndrome documented in this encounter Historical Medications * This list may reflect changes made after this encounter. Medication Sig Dispensed Refills Start Date End Date SENNOSIDES ORAL Take 1 Tab by mouth 2 times daily. added in this encounter Care Teams Convenience Store Manager Relationship Specialty Start Date End Date Neelima Corona MD [address] [place] [phone] PCP - General 03/10/11 documented as of this encounter
--- OUTSIDE RECORDS SUMMARY | 2023-10-08 02:10 | XMS_ITS | Encounter Summary ---
Author Organization [facility] Address [address] [place] [address] Care Team Providers Care [place] Seamer Name Role Phone Neelima Corona MD Primary Care Provider [phone] Encounter Details Date Type Department Care Team (Late st Contact Info) Description 09/18/2013 Orders Only [facility] Ophthalmology - [address] [id number] Asher Hirsch MD [address] [facility], [address] [place] [address] Social History Tobacco Use Types Packs/Day Years Used Date Smoking Tobacco: Never Smokeless Tobacco: Never Alcohol Use Standard Drinks/Week Comments No 0 (1 standard drink = 0.6 oz pur e alcohol) Sex and Gender Information Value Date Recorded Sex Assigned at Not on file Gender Identity Not on file Sexual Orientation Not on file documented as of this encounter Ordered Prescriptions Prescription Sig Dispensed Refills Start Date End Da te diazepam (VALIUM) 10 mg tablet Take 1 Tab by mouth once for 1 dose Take one hour before laser eye surgery on 09/22/13. 1 Tab 0 09/18/2013 06/30/2014 documented in this encounter Plan of Treatment Not on file documented as of this encounter Visit Diagnoses Not on filedocumented in this encounter Care Teams [place] Seamer Relationship Specialty Start Date End Date Neelima Corona MD [address] [place] [phone] PCP - General 03/10/11 documented as of this encounter
--- OUTSIDE RECORDS SUMMARY | 2023-10-08 02:10 | XMS_ITS | Encounter Summary ---
Author Organization [facility] Address [address] [place] [address] Care Team Providers Care Charge Aide Name Role Phone Neelima Corona MD Primary Care Provider [phone] Reason for Visit * Reason Comments Follow-up f/u Cataract right e ye and PCO left eye, Patient states vision is fine, Caregiver does not agree with this, no flashes, no new floaters, no pain, no gtts Encounter Details Date Type Department Care Team (Late st Contact Info) Description 08/28/2013 9:00 EDT Office Visit [facility] Ophthalmology - [address] [address] Asher Hirsch MD [address] [facility], [address] [place] [address] Social History Tobacco Use Types [...] encounter Discharge Diagnoses Diagnosis 366.17 MATURE CATARACT[ICD-9-CM] 366.53 AFTR-CATAR OBSCUR VISION[ICD-9-CM] 378.00 ESOTROPIA NOS[ICD-9-CM] V43.1 LENS REPLACEMENT NEC[ICD-9-CM] documented in this encounter Progress Notes * Asher Hirsch MD - 08/28/2013 0958 EDT Department of Ophthalmology / Cataract/Cornea Office Visit Note Referring physician: Neelima Corona Local Eye Wire Twisting Machine Operator: Family Physician (PCP): Neelima Corona MD Other Physician: History of Present Illness: This HPI section must be documented by the physician (or scribe upon the dictation of the physician). It should not be documented independently by the x ray service technician/scribe in the absence of the physician. Patient presents with ??? Follow-up f/u Cataract right eye X years and PCO left eye since 2006, Patient states vision is fine, Caregiver does not agree with this, no flashes, no new floaters, no pain, no gtts Pain: 0 / 10 Both Eyes Flashes: No Floaters: No Controls: Diabetes :No Hypertension:No Tobacco:No EXAMINATION: Base Eye Exam Visual Acuity Right Left Dist cc CF at 1' 20/60 -2 Dist ph sc 20/60-2 Dist ph cc 20/50-2 Method: Snellen - Linear Comments: ? If glasses are for reading or distance Tonometry Right Left Pressure 13 12 Method: Applanation Time: 9:17 Comments: 5% margin of error Pupils Pupils Dark Light React APD Right PERRL 3 2.5 Brisk None Left PERRL 3 2.5 Brisk None Visual Diaz Comments: Unable-poor cooperation Extraocular Movement Comments: RET, unable- poor cooperation Neuro/Psych Oriented x3: Yes Mood/Affect: Normal Dilation Both eyes: 1.0% Mydriacyl, 2.5% Shane Synephrine @ 9:28 Slit Lamp and Fundus Exam External Exam Right Left External esotropia Slit Lamp Exam Right Left Lids/Lashes Normal Normal Conjunctiva/Sclera White and quiet White and quiet Cornea Clear Clear Anterior Chamber Deep and quiet Deep and quiet Iris Round and reactive Round and reactive Lens mature cataract Posterior chamber intraocular lens, dense 4+ Posterior capsular opacification Vitreous Normal Fundus Exam Right Left Disc Normal C/D Ratio 0.3 Macula Normal Vessels Normal Periphery Normal Refraction Wearing Rx Sphere Cylinder [place] Horz Prism Vert Prism Right +2.00 Sphere Left +2.00 +1.00 130 1.0 out 1.0 down Comments: Estimate of prism Manifest Refraction Sphere Right Left unable Comments: Unable - poor subjective responses. NI left eye with +/- 1,3,6 D held up OPHTHALMOLOGY TESTING: [To insert test results, first enter the results in Doc Flowsheet and then use dot phrase .OPHTESTEXAM to choose the results module(s) to pull into this note] IMPRESSION / PLAN: Encounter Diagnoses Name Primary? Esotropia Yes ??? Total or mature senile cataract ??? PCO (posterior capsular opacification) ??? Pseudophakia -posterior capsular opacification left eye has worsened considerably. Although the patient has no complaints regarding his vision, my understanding is that he is not considered decisional at this point. Doubt that YAG capsulotomy could be done in clinic, due to squeezing of eyelids, and patient would not cooperate with the procedure (he does not want it to be done). Plan: Will discuss the situation with the patient's durable power of seam steamer for health care (Bo Lopez, ). Could attempt YAG capsulotomy in the operating room with general anesthesia, but the patient would need to be in a seated position for this to be done - would have to discuss this with anesthesia to determine if they would be comfortable proceeding with this. Pars plana vitrectomy, with excision of the central aspect of the posterior lens capsule, would be another treatment consideration. Likely would not proceed with cataract surgery right eye, as I believe there is little potential for restoring vision in this eye due to presumed amblyopia in this eye. Scribe Attestation: I am scribing for Asher Hirsch MD while he is personally performing the service. Federico Price (Scribe) Time spent: documented in this encounter Plan of Treatment Not on file documented as of this encounter Visit Diagnoses Diagnosis Esotropia- Primary Esotropia, unspecified Total or mature senile cataract PCO (posterior capsular opacification) After-cataract, unspecified Pseudophakia Lens replaced by other means documented in this encounter Historical Medications * This list may reflect changes made after this encounter. Medication Sig Dispensed Refills Start Date End Date NAPROXEN SODIUM (ALEVE ORAL) Take by mouth as needed. 06/30/2014 added in this encounter Eye Exam Visual Acuity (Snellen - Linear) Right eye Left eye Dist cc CF at 1' 20/60 -2 Dist ph sc 20/60-2 Dist ph cc 20/50-2 ? If glasses are for reading or distance Tonometry (Applanation, 9:17) Right eye Left eye Pressure 13 12 5% margin of error Pupils Pupils Dark Light React APD Right eye PERRL 3 2.5 Brisk None Left eye PERRL 3 2.5 Brisk None Visual Diaz Unable-poor cooperation Extraocular Movement RET, unable- poor cooperation Neuro/Psych Oriented x3: Yes Mood/Affect: Normal Dilation Both eyes: 1.0% Mydriacyl, 2 .5% Shane Synephrine @ 9:28 External Exam Right eye Left eye External esotropia Slit Lamp Exam Right eye Left eye Lids/Lashes Normal Normal Conjunctiva/Sclera White and quiet White and adrian et Cornea Clear Clear Anterior Chamber Deep and quiet Deep and quiet Iris Round and reactive Round and omar ctive Lens mature cataract Posterior chambe r intraocular lens, dense 4+ Posterior capsular opacification Vitreous Normal Fundus Exam Right eye Left eye Disc Normal C/D Ratio 0.3 Macula Normal Vessels Normal Periphery Normal Wearing Rx Sphere Cylinder [place] Horz Prism Vert Angelica m Right eye +2.00 Sphere Left eye +2.00 +1.00 130 1.0 out 1.0 down Estimate of prism Manifest Refraction Sphere Right eye Left eye unable Unable - poor subjective responses. NI left eye with +/- 1,3,6 D held up Care Teams Charge Aide Relationship Specialty Start Date End Date Neelima Corona MD [address] [phone] PCP - General 03/10/11 documented as of this encounter
--- OUTSIDE RECORDS SUMMARY | 2023-10-08 02:10 | XMS_ITS | Clinical Summary ---
Author Organization [facility] Address [address] [place] [address] Care Team Providers Care Tip Cementer Name Role Phone Neelima Corona MD Primary Care Provider [phone] Allergies No known active allergies Medications Medication Sig Dispensed Refills Start Date End Date Status levothyroxine (SYNTHROID) 112 mcg tablet Take 112 mcg by mouth daily. Active PROBENECID ORAL Take 500 mg by mouth daily Active PV W-O NATALIE/FERROUS FUMARATE/FA (M-VIT ORAL) Take by mouth. Active SENNOSIDES ORAL Take 1 Tab by mouth 2 times daily. Active CEPHALEXIN ORAL Take by mouth as needed Prior to dental appointments Active propylene glycol (SYSTANE BALANCE) 0.6 % drops Apply to eye. Active Active Problems Problem Noted Date Diagnosed Date S/P hip replacement 06/30/2014 Total or mature senile cataract 08/28/2013 Pseudophakia 08/28/2013 Down syndrome Hypothyroidism Gout Esotropia Overview: Right. Seborrheic dermatitis Rosacea Resolved Problems Problem Noted Date Diagnosed Date Resolved Date PCO (posterior capsular opacification) 08/28/2013 10/01/2013 Dyslipidemia 06/30/2014 Bilateral cataracts 08/29/19 14 Overview: S/p removal. Surgical History Surgery Date Site/Laterality Comments CATARACT REMOVAL bilateral COLONOSCOPY Medical History Medical History Date Comments DS (Down's syndrome) Dyslipidemia Hypothyroidism Gout Cataracts, bilateral Esotropia Seborrheic dermatitis Rosacea Phlebitis history of Family History Medical History Relation Comments Blindness Neg Hx Cataract Neg Hx Diabetes Neg Hx Glaucoma Neg Hx [place] Neg Hx Macular Degeneration Neg Hx Retinal Detachment Neg Hx Retinitis Pigmentosa Neg Hx Social History Tobacco Use Types Packs/Day Years [...] on file Sexual Orientation Not on file Obstetrics History Last Filed Vital Signs Vital Sign Reading Time Taken Comments Blood Pressure 100/60 11/18/2019 1559 EDT Pulse 64 11/18/2019 1559 EDT Temperature - - Respiratory Rate - - Oxygen Saturation 98% 11/18/2019 1559 EDT Inhaled Oxygen Concentration - - Weight 77.6 kg (171 lb) 11/18/2019 1559 EDT Height 158.8 cm (5' 2.5) 06/30/2014 1214 EDT Body Mass Index 30.78 06/30/2014 1214 EDT Plan of Treatment Health Maintenance Due Date Last Done Comments Hepatitis B Vaccine (1 of 3 - 19+ 3-dose series) 08/22 COVID-19 Vaccine (2022- season) 2022 Hepatitis C Screen Completed 07/05/2020 Procedures Procedure Name Priority Date/Time Associated Diagnosis Comments HEPATITIS C AB W REFLEX TO HCV RNA BY PCR Routine 07/05/2020 11:29 EDT from Last 3 Months or Most Recently Relevant to Health Maintenance Results * HEPATITIS C AB W REFLEX TO HCV RNA BY PCR (07/05/2020 11:29 EDT) Hep C Antibody Negative Negative 07/07/2020 10:45 EDT [facility] Blood VENOUS BLOOD / Unknown 07/05/2020 11:29 EDT 07/06/2020 15:45 EDT Provider Outr Resulting Lab CHEMISTRY & BLOOD GAS ORDERABLES [facility] [address] [place] [address] from Last 3 Months or Most Recently Relevant to Health Maintenance Advance Directives For more information, please contact: [phone] Documents on File Type Date Recorded Patient Manager Of Security Expl anation Advance Directive 04/03/2009 0:00 Guardian [facility] Care Teams Tip Cementer Relationship Specialty Start Date End Date Neelima Corona MD [address] [place] [phone] PCP - General 03/10/11
--- OUTSIDE RECORDS SUMMARY | 2023-10-08 02:10 | XMS_ITS | Encounter Summary ---
Author Organization [facility] Address [address] [place] [address] Care Team Providers Care Test Evaluator Name Role Phone Neelima Corona MD Primary Care Provider [phone] Reason for Visit * Reason Comments Follow-up f/u total cataract r ight eye, Pseudophakia left eye, Vision seems good, no flashes or new floaters, no pain, could patient's notes from today be mailed to the patient Encounter Details Date Type Department Care Team (Late st Contact Info) Description 06/30/2014 13:15 EDT Office Visit [facility] Ophthalmology - [facility] [address], [place] [id number] Asher Hirsch MD [address] [facility], [address] [place] [address] Discharge Disposition: Auto Discharge Social [...] as of this encounter Discharge Diagnoses Diagnosis 366.19 SENILE CATARACT NEC[ICD-9-CM] 378.00 ESOTROPIA NOS[ICD-9-CM] V43.1 LENS REPLACEMENT NEC[ICD-9-CM] documented in this encounter Discharge Disposition Disposition Code Departure Means Destination Auto Discharge documented in this encounter Progress Notes * Sherie Varela - 07/01/2014 1341 EDT 07/01/2014 13:41 Faxed 06/30/14 notes to [facility] per Asher Hirsch MD's request. Dennys Avery * Asher Hirsch MD - 06/30/2014 1434 EDT Department of Ophthalmology / Cataract/Cornea Office Visit Note Referring physician: Asher Hirsch Local Eye Iap Displays Analyst: Dr. Amilcar FLORES Family Physician (PCP): Neelima Corona MD Other Physician: History of Present Illness: This HPI section must be documented by the physician (or scribe upon the dictation of the physician). It should not be documented independently by the solids control technician/scribe in the absence of the physician. Patient presents with ??? Follow-up f/u total cataract right eye, Pseudophakia left eye. He underwent cataract surgery in his left eye in [address] ([address] TEJADA) and then YAG capsulotomy left eye in September 2013 (also by MALLORY). Vision seems good, no flashes or new floaters, no pain, could patient's notes from today be mailed to the patient Pain: 0 / 10 Both Eyes Flashes: No Floaters: No Controls: Diabetes :No Hypertension:No Tobacco:No EXAMINATION: Base Eye Exam Visual Acuity (Snellen - Linear) Right Left Dist sc LP 20/30 Dist ph sc NI Tonometry (Tonopen, 13:58) Right Left Pressure 12 12 5% margin of error- difficult. A/C deep both eyes. Pupils Pupils Dark Light React APD Right PERRL 3 2 Brisk None Left PERRL 3 2 Brisk None Visual Diaz Unable - poor co-operation Extraocular Movement RET Neuro/Psych Oriented x3: Yes Mood/Affect: Normal Dilation Both eyes: 1.0% Mydriacyl, 2.5% Phenylephrine @ 14:06 Slit Lamp and Fundus Exam External Exam Right Left External esotropia Slit Lamp Exam Right Left Lids/Lashes Normal Conjunctiva/Sclera White and quiet Cornea Clear Anterior Chamber Deep and quiet Iris Round and reactive Lens brunescent cataract Posterior chamber intraocular lens clear post cpasulotomy Vitreous Normal clear Fundus Exam Right Left Disc Normal C/D Ratio 0.3 Macula Normal Periphery Normal Edited by: Kair Barger OTA OPHTHALMOLOGY TESTING: [To insert test results, first enter the results in Doc Flowsheet and then use dot phrase .OPHTESTEXAM to choose the results module(s) to pull into this note] IMPRESSION / PLAN: Encounter Diagnoses Name Primary? Total or mature senile cataract ??? Esotropia ??? Pseudophakia Yes -doing well post YAG capsulotomy left eye. Plan: I do not recommend that he undergo cataract surgery for his right eye, as he may have historyof dense amblyopia affecting his right eye (so the potential for improvement in visual acuity is likely limited) and he might experience diplopia with cataract surgery for his right eye, given his strabismus. Recommend annual eye exams. He will likely be seen at [facility] in [facility], and we will send this note there. No follow-up appointments were scheduled here, but I'd be happy to see him again any time. Scribe Attestation: I am scribing for Asher Hirsch MD while he is personally performing the service. Kari Barger (Scribe) Time spent: documented in this encounter Plan of Treatment Not on file documented as of this encounter Visit Diagnoses Diagnosis Pseudophakia- Primary Lens replaced by other means Total or mature senile cataract Esotropia Esotropia, unspecified documented in this encounter Historical Medications * This list may reflect changes made after this encounter. Medication Sig Dispensed Refills Start Date End Date CEPHALEXIN ORAL Take by mouth as needed Prior to dental appointments added in this encounter Eye Exam Visual Acuity (Snellen - Linear) Right eye Left eye Dist sc LP 20/30 Dist ph sc NI Tonometry (Tonopen, 13:58) Right eye Left eye Pressure 12 12 5% margin of error- difficult. A/C deep both eyes. Pupils Pupils Dark Light React APD Right eye PERRL 3 2 Brisk None Left eye PERRL 3 2 Brisk None Visual Diaz Unable - poor co-operation Extraocular Movement RET Neuro/Psych Oriented x3: Yes Mood/Affect: Normal Dilation Both eyes: 1.0% Mydriacyl, 2 .5% Phenylephrine @ 14:06 External Exam Right eye Left eye External esotropia Slit Lamp Exam Right eye Left eye Lids/Lashes Normal Conjunctiva/Sclera White and adrian et Cornea Clear Anterior Chamber Deep and quiet Iris Round and reacti ve Lens brunescent cataract Posterior ch ford intraocular lens clear post cpasulotomy Vitreous Normal clear Fundus Exam Right eye Left eye Disc Normal C/D Ratio 0.3 Macula Normal Periphery Normal Care Teams Test Evaluator Relationship Specialty Start Date End Date Neelima Corona MD [address] [place] [phone] PCP - General 03/10/11 documented as of this encounter
--- OUTSIDE RECORDS SUMMARY | 2023-10-08 02:10 | XMS_ITS | Referral Summary ---
Author Organization [facility] Address [address] [place] [address] Care Team Providers Care Voip Network Technician Name Role Phone Neelima Corona MD Primary Care Provider [phone] Allergies No known active allergies Medications Medication [...] Bilateral cataracts 08/29/19 14 Overview: S/p removal. Social History Tobacco Use Types Packs/Day Years [...] on file Sexual Orientation Not on file Last Filed Vital Signs Vital Sign Reading [...] 30.78 06/30/2014 1214 EDT Plan of Treatment Not on file Procedures Procedure Name Priority Date/Time Associated Diagnosis Comments HEPATITIS C AB W REFLEX TO HCV RNA BY PCR Routine 07/05/2020 11:29 EDT from Last 3 Months or Most Recently Relevant to Health Maintenance Results * HEPATITIS C AB W REFLEX TO HCV RNA BY PCR (07/05/2020 11:29 EDT) Hep C Antibody Negative Negative 07/07/2020 10:45 EDT [facility] Blood VENOUS BLOOD / Unknown 07/05/2020 11:29 EDT 07/06/2020 15:45 EDT Provider Outr Resulting Lab CHEMISTRY & BLOOD GAS ORDERABLES [facility] [address] [place] [address] from Last 3 Months or Most Recently Relevant to Health Maintenance Advance Directives For more information, please contact: [phone] Documents on File Type Date Recorded Patient Tile Grinder Expl anation Advance Directive 04/03/2009 0:00 Guardian [facility] Care Teams Voip Network Technician Relationship Specialty Start Date End Date Neelima Corona MD [address] [place] [phone] PCP - General 03/10/11
--- OUTSIDE RECORDS SUMMARY | 2023-10-08 02:10 | XMS_ITS | Encounter Summary ---
Author Organization [facility] Address [address] [place] [address] Care Team Providers Care Stallion Manager Name Role Phone Neelima Corona MD Primary Care Provider [phone] Encounter Details Date Type Department Care Team (Latest Contact Info) Description 09/23/2019 Travel Social History Tobacco Use Types Packs/Day Years Used Date Smoking Tobacco: Never Smokeless Tobacco: Never Alcohol Use Standard Drinks/Week Comments No 0 (1 standard drink = 0.6 oz pur e alcohol) Sex and Gender Information Value Date Recorded Sex Assigned at Not on file Gender Identity Not on file Sexual Orientation Not on file COVID-19 Exposure Response Date Recorded In the last month, have you been in contact with someone who was confirmed or suspected to have Coronavirus / COVID-19? Yes 09/23/2019 14:51 EDT documented as of this encounter Plan of Treatment Not on file documented as of this encounter Visit Diagnoses Not on filedocumented in this encounter Care Teams Stallion Manager Relationship Specialty Start Date End Date Neelima Corona MD [address] [place] [phone] PCP - General 03/10/11 documented as of this encounter
--- OUTSIDE RECORDS SUMMARY | 2023-10-08 02:10 | XMS_ITS | Encounter Summary ---
Author Organization [facility] Address [address] [place] [address] Care Team Providers Care Collision Center Manager Name Role Phone Neelima Corona MD Primary Care Provider [phone] Encounter Details Date Type Department Care Team (Late st Contact Info) Description 07/06/2020 Lab Requisition [facility] Pathology & Laboratory Medicine - [facility] [address], [place] [id number] Outr Resulting Lab, Provider Social History Tobacco [...] RNA BY PCR Routine 07/05/2020 11:29 EDT documented in this encounter Results * HEPATITIS C AB W REFLEX TO HCV RNA BY PCR (07/05/2020 11:29 EDT) Hep C Antibody Negative Negative 07/07/2020 10:45 EDT [facility] Blood VENOUS BLOOD / Unknown 07/05/2020 11:29 EDT 07/06/2020 15:45 EDT Provider Outr Resulting Lab CHEMISTRY & BLOOD GAS ORDERABLES [facility] [address] [place] [address] documented in this encounter Visit Diagnoses Not on filedocumented in this encounter Care Teams Collision Center Manager Relationship Specialty Start Date End Date Neelima Corona MD [address] [place] [phone] PCP - General 03/10/11 documented as of this encounter
--- OUTSIDE RECORDS SUMMARY | 2023-10-08 02:11 | XMS_ITS | Encounter Summary ---
Author Organization [facility] Address [facility] [place] [address] Care Team Providers Care Silk Weaver Name Role Phone Neelima Corona MD Primary Care Provider [phone] Reason for Visit * Reason Comments Follow-up Encounter Details Date Type Department Care Team (Late st Contact Info) Description 08/23/2020 1:45 PM EDT Office Visit Dermatology at [facility] [address] [place] [address] Farzana Becerra MD [facility] [address] [place] [address] Rosacea; Seborrheic dermatitis; Psoriasis Social History Tobacco Use Types Packs/Day Years Used Date Smoking Tobacco: Never Assessed Sex and Gender Information Value Date Recorded Sex Assigned at Not on file Gender Identity Not on file Sexual Orientation Not on file documented as of this encounter Progress Notes * Gini Benites RN - 08/23/2020 1:45 PM EDT Images from the original note were not included. DEPARTMENT OF DERMATOLOGY Established Patient Clinic Note Provider: FARZANA BECERRA MD Patient Preferences Preferred name Bill Preferred contact method for results [] Home [x] Cell [] MyD-H [] Other: Permission to leave detailed message including results Yes Permission to discuss care with Sonia, sister in law Zafar, brother Relevant social history Past Medical History Y/N Date, location, treatment Melanoma n DN n SCC n BCC n [place] n Immunosuppression or malignancy Blistering sunburns or tanning bed use Other relevant past skin history Psoriasis Rosacea Seborrheic dermatitis Family History Y/N Parents, siblings, children Melanoma n NMSC n Other n Procedure Screening Questions Y/N Allergies to lidocaine or epinephrine n Blood thinners n Pacemaker or defibrillator n History of Present Illness: Bertrand Lopez is a 45 y.o. established patient, last seen by Charlie Stauffer MD on 05/11/2020. Here today for follow up: - Rosacea; doxycycline BID for 4 weeks which helped but seemed to worsen after stopping. Metronidazole cream was prescribed but made the skin red and irritated. Instead has been using a tar, coalcream which seemed to improve redness. - Seborrheic dermatitis: resolved with T gel and Head and Shoulders - Psoriasis: using triamcinolone as needed Medications: Reviewed in eD-H Allergies: Reviewed in eD-H Skin Examination: A focused skin examination of the scalp and face, including areas under mask, significant for the following: Significant Findings/Assessment/Plan A. Rosacea - Scattered red, acneiform papules/pustules in a background of erythema on the central face. - Discussed common triggers, including alcohol, exercise, caffeine, spicy foods, sun exposure, and extreme temperatures - Discussed treatment options; patient and sister elect to start Rx doxycycline (Oracea) 40 mg: Take 1 capsule by mouth daily. - Counseled prolonged use of oral antibiotics without attempt to transition to safer, long-term alternative. B. Seborrheic Dermatitis - no scale, no dandruff present on assessment. - Discussed etiology and therapeutic options. - Continue alternating Head and Shoulders Shampoo with T-Gel Shampoo. Contact clinic with any further questions or concerns. C. Psoriasis- well controlled, no scale or erythema present at this time. - Discussed that this is a chronic, inflammatory autoimmune skin condition that can fluctuate in severity over time. This condition is more controllable than curable. - Reviewed treatment options, including topicals, light therapy, and systemic medications. - Continue to use triamcinolone, PRN Other: - N/A Follow Up: Follow Up: RTC PRN If any questions or concerns arise, patient is welcome to return to clinic. Gini Benites RN has performed the documentation for this encounter in the presence of and acting as a scribe for FARZANA BECERRA MD. I performed the above scribed service and agree with the accuracy of the documentation in this encounter. Reviewed and signed by: FARZANA BECERRA MD Department of Dermatology [facility] documented in this encounter Plan of Treatment Upcoming Encounters Date Type Department Care Team (Late st Contact Info) Description 10/23/2023 10:00 AM EDT Office Visit Dermatology at [address] [place] [phone] Charlie Stauffer MD [facility] [address] [facility] [address] documented as of this encounter Visit Diagnoses Diagnosis Rosacea Seborrheic dermatitis Seborrheic dermatitis, unspecified Psoriasis Other psoriasis documented in this encounter Care Teams Silk Weaver Relationship Specialty Start Date End Date Neelima Corona MD [address] [facility] [address] [place] [address] PCP - General 01/25/10 documented as of this encounter
--- OUTSIDE RECORDS SUMMARY | 2023-10-08 02:11 | XMS_ITS | Encounter Summary ---
Author Organization [facility] Address [address] [place] [address] Care Team Providers Care Upholstery Trimmer Name Role Phone Unavailable Primary Care Provider Unavailabl e Encounter Details Date Type Department Care Team (Late st Contact Info) Description 08/28/2006 9:43 EDT Hospital Encounter [address] [address] Asher Hirsch MD [address] [place] [address], [facility] [address] [place] [phone] Social History Tobacco Use Types Packs/Day Years [...]
--- OUTSIDE RECORDS SUMMARY | 2023-10-08 02:11 | XMS_ITS | Encounter Summary ---
Author Organization [facility] Address [facility] [place] [address] Care Team Providers Care Waxer Floor Name Role Phone Neelima Corona MD Primary Care Provider [phone] Reason for Visit * Reason Comments Follow-up Encounter Details Date Type Department Care Team (Late st Contact Info) Description 05/11/2020 9:45 AM EST Office Visit Dermatology at [facility] [address] [place] [address] Charlie Stauffer MD [facility] [place] [address] Rosacea; Seborrheic dermatitis Social History Tobacco Use Types Packs/Day Years Used Date Smoking Tobacco: Never Assessed Sex and Gender Information Value Date Recorded Sex Assigned at Not on file Gender Identity Not on file Sexual Orientation Not on file documented as of this encounter Progress Notes * Charlie Stauffer MD - 05/11/2020 9:45 AM EST Images from the original note were not included. DERMATOLOGY - ESTABLISHED PATIENT FOLLOW-UP Date of service: 05/11/2020 Bertrand Lopez : 1975, 44 y.o. CC: psoriasis, tova derm follow up HPI: Bertrand Lopez is a 44 y.o. male last seen by myself on 03/09/2020 Mr. Lopez returns today for a follow up of psoriasis on the chest and arms and tova derm on the face. He is accompanied by his [id number]. He is treating the tova derm on the face with hydrocortisone 2.5% cream 7-10 days on 5 days off for four rounds, which made the rash much worse. It is more red and bumpy on his face, they are not currently using anything else on his face, he denies any symptoms from the rash, but ynkoyq-[id number] notes that he has a very high tolerance for pain, the psoriasison the trunk that was treated with triamcinolone ointment, has resolved Ok to leave a detailed message? Yes Is there anyone with whom we can share your labs and/or biopsy results with? no ?? Relevant Skin History: - Skin cancer (including type): none ?? Family History: Melanoma: none Brother: Eczema ?? Relevant Social History: - single - lives in [place], [place] - here today with [id number]-uh-rru, Sonia Medications: Current Outpatient Medications Medication Sig Dispense Refill ??? levothyroxine (Synthroid) 112 mcg Tablet Take 112 mcg by mouth Daily. ??? probenecid (Benemid) 500 mg Tablet TAKE ONE TABLET BY MOUTH EVERY DAY ??? multivitamin (THERAGRAN) Tablet Take 1 tablet by mouth daily. With iron ??? cephALEXin (Keflex) 500 mg Capsule TAKE 4 CAPSULES BY MOUTH 1 HOUR PRIOR TO DENTAL APPOINTMENT ??? hydrocortisone 2.5 % Ointment Apply topically to rash on the face twice daily for 7-10 days, take 5 day break and repeat for flares 30 g 0 ??? triamcinolone (KENALOG) 0.1 % Ointment Apply to rash on the chest, arms twice daily for 2 weeks, take 1 week off, repeat as needed, DO NOT apply to face 80 g 0 No current facility-administered medications for this visit. Allergies: No Known Allergies Review of Systems: - General: Feels well. - Skin: No other skin concerns. Examination: - Constitutional: Patient was alert, well-appearing and in no noticeable distress. - Skin: Focused skin examination of the face and scalp was normal with the exception of the findings listed below. Diagnosis/Skin findings/Assessment/Plan: #. Papulopustular rosacea, flaring - Erythematous patches with scattered papules on the BL cheeks and nose -Discussed chronic nature of rosacea and various aspects of the disease such as telangectasia, flushing, triggers and papules. Plan: Moderate to Severe - Start Rx Doxycycline 100mg BID for 4 weeks; will consider titration to 100mg QD for 4 weeks. Counseled multivitamin with Ca2+ can decrease absorption. Side effects and dosing of doxycycline reviewed. - Start Rx Metronidazole cream 0.75% BID to affected areas - If flaring s/p doxycyline, I will consider low dose doxycycline for maintenance. - Patient instructed to return to clinic for re-evaluation sooner, if rosacea does not resolve withthis treatment; as expected. #. Seborrheic dermatitis - scattered yellow greasy scaly patch behind the ears and on the scalp - Symptomatic -Treats with tar and head and shoulders. -advised this is a chronic condition 2nd to P. [place] that can be controlled. If worsens or becomes more symptomatic can offer alternative treatments - Continue Head & Shoulder with Zinc pyrithione and use T/Gel for flares. Counseled: leave on for 5 minutes before washing off. RTC: 3 months for Rosacea follow up, or sooner if necessary. Scheduled in room. Note initiated by Clinton Nicole CMA. Clinical scribe: Louann Barker - I am documenting this encounter acting as the scribe for and in the presence of Charlie Stauffer MD. I performed the above scribed service and agree with the accuracy of the documentation in this encounter. Reviewed and signed by Charlie Stauffer MD Department of Dermatology [facility] documented in this encounter Plan of Treatment Upcoming Encounters Date Type Department Care Team (Late st Contact Info) Description 10/23/2023 10:00 AM EDT Office Visit Dermatology at [facility] [address] [place] [address] Charlie Stauffer MD [facility] [place] [address] documented as of this encounter Visit Diagnoses Diagnosis Rosacea Seborrheic dermatitis Seborrheic dermatitis, unspecified documented in this encounter Care Teams Waxer Floor Relationship Specialty Start Date End Date Neelima Corona MD [address] [place] [address] PCP - General 01/25/10 documented as of this encounter
--- OUTSIDE RECORDS SUMMARY | 2023-10-08 02:11 | XMS_ITS | Encounter Summary ---
Author Organization [facility] Address [facility] [place] [address] Care Team Providers Care Refuge Manager Name Role Phone Neelima Corona MD Primary Care Provider [phone] Encounter Details Date Type Department Care Team (Late st Contact Info) Description 12/23/2020 Telephone Dermatology at [facility] [address] [place] [address] Farzana Becerra MD [facility] [address] [place] [address] Social History Tobacco Use Types Packs/Day Years Used Date Smoking Tobacco: Never Assessed Sex and Gender Information Value Date Recorded Sex Assigned at Not on file Gender Identity Not on file Sexual Orientation Not on file documented as of this encounter Miscellaneous Notes * Telephone Encounter - Lyric Salgado LPN - 12/23/2020 11:23 AM EDT Called patient and detailed message left that we would need to see him to review his rosacea eitherin person or telehealth. Will ask bobbin doffer for Dr. Stauffer to call and schedule a follow up at earliest convenience * Telephone Encounter - Krystal Fernández - 12/23/2020 10:59 AM EDT The antibiotics that this pt was on for 4 months did not work for the rocasea and also the cream does not work. They would like to know what to do. Call: Sonia [phone]. Krystal documented in this encounter Plan of Treatment Upcoming Encounters Date Type Department Care Team (Late st Contact Info) Description 10/23/2023 10:00 AM EDT Office Visit Dermatology at [facility] [address] [place] [address] Charlie Stauffer MD [facility] [address] [place] [address] documented as of this encounter Visit Diagnoses Not on filedocumented in this encounter Care Teams Refuge Manager Relationship Specialty Start Date End Date Neelima Corona MD [facility] [place] [address] [address] PCP - General 01/25/10 documented as of this encounter
--- OUTSIDE RECORDS SUMMARY | 2023-10-08 02:11 | XMS_ITS | Encounter Summary ---
Author Organization [facility] Address [address] [place] [address] Care Team Providers Care Associate Professor Of Education Name Role Phone Unavailable Primary Care Provider Unavailabl e Encounter Details Date Type Department Care Team (Late st Contact Info) Description 08/27/2006 Before PRISM Converted Visit (Maple) [facility] - Maple conversion [address] [place] [address] Asher Hirsch MD [address] [facility], [facility] [address] [place] [id number] Social History Tobacco Use Types Packs/Day Years Used Date Smoking Tobacco: Never Assessed Sex and Gender Information Value Date Recorded Sex Assigned at Not on file Gender Identity Not on file Sexual Orientation Not on file documented as of this encounter OR Notes * OR Surgeon - Asher Hirsch MD - 01/08/20092055 EST PROCEDURE REPORT PT TYPE: OPPROC SERVICE DATE: 08/27/2006 SURGEON: Asher Hirsch MD CREDIT OPERATIONS SPECIALIST: GAEL Magaña PREOPERATIVE DIAGNOSIS 1. Cataract, left eye. 2. Trisomy 21. 3. Right esotropia and probable right ambiopia. POSTOPERATIVE DIAGNOSIS 1. Cataract, left eye. 2. Trisomy 21. 3. Right esotropia and probable right ambiopia. PROCEDURE 1. Phacoemulsification with posterior chamber intraocular lens, left eye. 2. Subconjunctival antibiotic injections, left eye. ANESTHESIA General. NARRATIVE The patient was taken to the operating room and placed in a supine position. General anesthesia wasinduced by the anesthesia service. His left eye was prepped and draped in sterile fashion, and an operating microscope was maneuvered into position for a superior approach cataract surgery of his left eye.A paracentesis site was created superotemporally and unpreserved lidocaine was administered into the anterior chamber, followed by Viscoat and Healon. A 2.75-mm corneal incision was created superonasally, and a needle cystotome was used to initiate a continuous circular capsulorrhexis, which was completed using capsulorrhexis forceps. Balanced salt solution on a J-cannula was used for hydrodissection in addition to an angled cannula, with good mobility of the lens nucleus noted. A angled Synthegoman phaco tipwas used to carve a groove in the anterior aspect of the lens nucleus, which was thencracked into two hemispheres. An additional groove was constructed in the anterior aspect of one ofthese nucleus hemispheres, which was then cracked into two quadrants,each of which was removed through phacoemulsification. The remaining nucleus hemisphere was engaged using the phaco tip and was chopped into smaller portions using a bettermarksinger as a chopper. These small portions of nucleus were then removed through phacoemulsification. Cortex was removed through irrigation-aspiration.Healon was administered into the the anterior chamber and an SA60AT +22.5 diopter intraocular lens was injected into the capsular bag using a [place] injector. Irrigation-aspiration was used to remove viscoelastic. Stromal hydration was performed at the corneal incisions, which were found to be watertight upon testing with Weck-China sponges. A total of three 10-0 nylon sutures were placed, due to the patient's potential for rubbing his eye postoperatively. Drops of Timolol and Thymol were applied in addition to Maxitrol ophthalmic ointment and a patch and shield. Prior to performing phacoemulsification, axial lengths were measured in the operating room and werefound to consistently measure 24.05 mm right eye and 23.03 mm left eye. A superior approach to the procedure was done due to a steep axis of astigmatism superiorly. This approach to the procedure mayresult in some reduction of his existing astigmatism. A refractivetarget of -0.25 sphere was chosento provide distance correction primarily for this individual. This refractive target had been discussed with the patient's family preoperatively. ESTIMATED BLOOD LOSS None. DRAINS None. SPECIMENS None. COMPLICATIONS None. Signed by Asher Hirsch MD 08/30/2006 14:30 Andreas Jose MD Asher Hirsch MD - MD Joycelyn A - [place] Job ID: [id number] Document ID: [id number] cc: MD Asher Tamayo MD Document ID: [id number] cc: MD Asher Tamayo MD documented in this encounter Plan of Treatment Not on file documented as of this encounter Visit Diagnoses Not on filedocumented in this encounter
--- OUTSIDE RECORDS SUMMARY | 2023-10-08 02:11 | XMS_ITS | Encounter Summary ---
Author Organization [facility] Address [facility] [place] [place] [address] Care Team Providers Care Billing Rep Name Role Phone Neelima Corona MD Primary Care Provider [phone] Encounter Details Date Type Department Care Team (Late st Contact Info) Description 12/27/2020 3:00 PM EDT Office Visit Dermatology at [facility] [address] [facility] [place] [address] Charlie Stauffer MD [facility] [address] [address] Seborrheic dermatitis Social History Tobacco Use Types Packs/Day Years Used Date Smoking Tobacco: Never Assessed Sex and Gender Information Value Date Recorded Sex Assigned at Not on file Gender Identity Not on file Sexual Orientation Not on file documented as of this encounter Progress Notes * Charlie Stauffer MD - 12/27/2020 3:00 PM EDT Images from the original note were not included. DEPARTMENT OF DERMATOLOGY Medical D[facility]atology [facility] Provider: Charlie Stauffer MD Preferred name Bill Preferred contact method for results []? Home [x]? Cell []? MyD-H []? Other: Permission to leave detailed message including results Yes Permission to discuss care with Sonia, sister in law Zafar, brother Relevant social history ? Past Medical History Y/N Date, location, treatment Melanoma n ?? DN n ?? SCC n ?? BCC n ?? [place] n ?? Immunosuppression or malignancy ? Blistering sunburns or tanning bed use ? Other relevant past skin history ?? Psoriasis Rosacea Seborrheic dermatitis ?? Family History Y/N Parents, siblings, children Melanoma n ?? NMSC n ?? Other n ?? Pre-Procedure Questions Details Allergy to lidocaine, epinephrine, Dermabond, chlorhexidine, or adhesives N Bleeding disorder or blood thinners N Pacemaker, defibrillator, deep brain stimulator, cochlear implant N History of Present Illness: Bertrand Lopez is a 45 y.o. Patient returns to clinic today for a rosacea follow up. Has been using doxycyline 40mg daily. The doxycycline did not improve the rosacea. Metronidazole cream gave him facial blisters so they discontinued it. Currently using a Plexus topical body cream with main active ingredients including charcoal, aloe, bey butter, vitamin E, and essential oils. This has improved the rosacea. [facility] 08[facility]/2020 Last visit with this provider: 05/11/2020 Medications: Reviewed in eD-H Allergies: Reviewed in eD-H Skin Examination: Focused skin examination of the face and scalp was normal with the exception of the findings below. Assessment/Plan: #. Seborrheic Dermatitis - Yellowish, greasy scale overlying erythematous patches on the . - Discussed etiology and treatment options including T/Gel, ketoconazole shampoo, or a topical steroid. -Hx of intermittent flaring and use of topical shampoos and use of topical tar compounded for scalpinvolvement in the past -Flaring on the face with partial response to OTC shampoos Plan: - RX: Hydrocortisone 2.5% topical cream twice daily for two weeks, then as needed for maintenance. - If the hydrocortisone does not control the seborrhea, instructed to call to have Tacrolimus (Protopic) 0.1% or Pimecrolimus (Elidel) ointment sent to the pharmacy to trial. #. Hx of Rosacea -Resolved with combination doxycycline and topical Metronidazole -Question of irritant contact dermatitis to Metronidazole in past Other: ??? OTC skin products discussed RTC: 3 months for follow up []Note routed to office secretary []Recall placed in scheduling system [x]Appointment scheduled at checkout Scribe attestation: Lyn Albright [facility] has performed the documentation for this encounter in thepresence of and acting as a scribe for Charlie Stauffer MD. I performed the above scribed service and agree with the accuracy of the documentation in this encounter. Reviewed and signed by: Charlie Stauffer MD Dermatology [facility] documented in this encounter Plan of Treatment Upcoming Encounters Date Type Department Care Team (Late st Contact Info) Description 10/23/2023 10:00 AM EDT Office Visit Dermatology at [facility] [address] [place] [address] Charlie Stauffer MD [facility] [address] [address] documented as of this encounter Visit Diagnoses Diagnosis Seborrheic dermatitis Seborrheic dermatitis, unspecified documented in this encounter Care Teams Billing Rep Relationship Specialty Start Date End Date Neelima Corona MD [address] [place] [address] [address] [place] [address] PCP - General 01/25/10 documented as of this encounter
--- OUTSIDE RECORDS SUMMARY | 2023-10-08 02:11 | XMS_ITS | Encounter Summary ---
Author Organization [facility] Address [facility] [place] [address] Care Team Providers Care Serials Librarian Name Role Phone Neelima Corona MD Primary Care Provider [phone] Encounter Details Date Type Department Care Team (Latest Contact Info) Description 07/24/2023 Travel Social History Tobacco Use Types Packs/Day Years Used Date Smoking Tobacco: Never Assessed Sex and Gender Information Value Date Recorded Sex Assigned at Not on file Gender Identity Not on file Sexual Orientation Not on file documented as of this encounter Plan of Treatment Upcoming Encounters Date Type Department Care Team (Late st Contact Info) Description 10/23/2023 10:00 AM EDT Office Visit Dermatology at [facility] [address] [place] [address] Charlie Stauffer MD [facility] [address] [place] [address] documented as of this encounter Visit Diagnoses Not on filedocumented in this encounter Care Teams Serials Librarian Relationship Specialty Start Date End Date Neelima Corona MD [address] [place] [address] PCP - General 01/25/10 documented as of this encounter
--- OUTSIDE RECORDS SUMMARY | 2023-10-08 02:11 | XMS_ITS | Encounter Summary ---
Author Organization [facility] Address [address] [place] [address] Care Team Providers Care Senior Reactor Operator Name Role Phone Unavailable Primary Care Provider Unavailabl e Encounter Details Date Type Department Care Team (Late st Contact Info) Description 09/24/2006 9:35 EDT - 09/24/2006 11:59 EDT Hospital Encounter [facility] Perioperative Services - [address] [id number] Asher Hirsch MD [address] [facility], [address] [place] [address] Discharge Disposition: Home or Self Care Social History Tobacco Use Types Packs/Day Years Used Date Smoking Tobacco: Never Assessed Sex and Gender Information Value Date Recorded Sex Assigned at Not on file Gender Identity Not on file Sexual Orientation Not on file documented as of this encounter Discharge Disposition Disposition Code Departure Means Destination Home or Self Care documented in this encounter OR Notes * OR Surgeon - Asher Hirsch MD - 09/24/2006 0000 EDT PROCEDURE REPORT PT TYPE: OPPROC SERVICE DATE: 09/24/2006 SURGEON: Asher Hirsch MD CANE LOADER: PREOPERATIVE DIAGNOSES 1. Pseudophakia, left eye, one month post cataract surgery 2. Cataract, right eye. 3. Down's syndrome. POSTOPERATIVE DIAGNOSES 1. Pseudophakia, left eye, one month post cataract surgery 2. Cataract, right eye. 3. Down's syndrome. PROCEDURE Examination under anesthesia, both eyes, with removal of corneal sutures, left eye. ANESTHESIA General. INDICATIONS The patient is a 31-year-old man with trisomy 21, with progressive visual loss affecting both eyes.He underwent cataract surgery in his left eye on August 27, 2006, for a dense posterior subcapsular cataract. Intraocular lens measurements were taken forboth eyes at that time. He does have a history of right esotropia and right amblyopia, and there is uncertain prognosis for improved visual acuity with cataract surgery of his right eye, given the probable history of amblyopia of the right eye. Hehas been treated with Acular, Pred Forte, and Zymar ophthalmic drops q.i.d. to his left eye over the past month. FINDINGS/NARRATIVE The patient was taken to the operating room and placed in the supine position and was placed under general anesthesia. Intraocular pressures were checked with a David-Pen and were found to measure 8 mmHg at 5% margin of error times two, right eye, and 8 mmHg at 5% margin of error times two, left eye. Examination with an operating microscope showed the posterior chamber intraocular lens in the lefteye to be clear, with a formed anterior chamber. No conjunctival injection was present, and three corneal sutures were present. These were removed and the incisions were found to be Bella negative subsequently. A dense posterior subcapsular cataract was seen in association with the right crystallin e lens. A very hazy view to the right posterior pole was noted with funduscopic examination, but a 0.2 cup-to-disk ratio was noted. A 0.2 cup-to-disk ratio was present in the left eye. The left macula appeared healthy, and peripheral retinal examination of the left eye appeared unremarkable. ASSESSMENT The patient is doing well one month post cataract surgery on his left eye, and has a dense cataractin his right eye. The procedure appears to have led to an improvement in the patient's quality of life, and his brother tells me he has been referring to his eye recently as his new eye. Due to the suture removal today, I advised the patient's family to treat his left eye with Zymarophthalmic drops (antibiotic drops) q.i.d. for the next four days and then to discontinue this medication. A tapering dose of Acular and Pred Forte was recommended, and they were advised to use these drops t.i.d. to the left eye for one week, then b.i.d.for one week, then daily for one week, and then to discontinue these medications. I advised a six-month recheck in the ophthalmology clinic. The patient's brother suggests that the patient go through cataract surgery of his right eye next summer, and thepatient has apparently asked that this surgery be done for his right eye. There is unclear prognosis for improved visual acuity in the right eye, given right esotropia and history of amblyopia. Proceeding with cataract surgery of his right eye does appear to be reasonable, because there may be some improvement in visual acuity and because the cataract is sufficiently dense to preclude adequate evaluation of the optic nerve head and retina in the right eye. The patient was extubated and was transported in stable condition to the recovery room. ESTIMATED BLOOD LOSS None. SPECIMENS None. DRAINS None. COMPLICATIONS None. Signed by Asher Hirsch MD 09/26/2006 22:06 Andreas Jose MD Asher Hirsch MD - Asher Hirsch MD P - SS Job ID: [id number] Document ID: [id number] cc: MD Asher Tamayo MD \* MERGEFORMAT Asher Hirsch MD - Asher Hirsch MD P - ss Job ID: [id number] Document ID: [id number] cc: MD Asher Tamayo MD documented in this encounter Plan of Treatment Not on file documented as of this encounter Visit Diagnoses Not on filedocumented in this encounter
--- OUTSIDE RECORDS SUMMARY | 2023-10-08 02:11 | XMS_ITS | Encounter Summary ---
Author Organization [facility] Address [address] [place] [address] Care Team Providers Care Backup Sawyer Name Role Phone Neelima Corona MD Primary Care Provider [phone] Encounter Details Date Type Department Care Team (Late st Contact Info) Description 06/30/2011 Orders Only [facility] Memory Program - Medical Office Building [address] [place], [place] [id number] Bertrand Butler MD 2 [facility] Medical Office Building, [address] [place] [phone] Memory loss (Primary Dx) Social History Tobacco Use Types Packs/Day Years Used Date Smoking Tobacco: Never Smokeless Tobacco: Never Alcohol Use Standard Drinks/Week Comments Not Asked 0 (1 standard drink = 0.6 oz pur e alcohol) Sex and Gender Information Value Date Recorded Sex Assigned at Not on file Gender Identity Not on file Sexual Orientation Not on file documented as of this encounter Plan of Treatment Not on file documented as of this encounter Procedures Procedure Name Priority Date/Time Associated Diagnosis Comments CT HEAD WO CONTRAST 07/04/2011 1 4:27 EDT documented in this encounter Results * SYPHILIS SEROLOGY (07/04/2011 14:46 EDT) Syphilis Serology Interpretation: Nonreactive [facility] Comment:Reference Range: Non reactive Blood specimen (specimen) 07/04/2011 14:46 EDT 07/04/2011 15:46 EDT Bertrand Butler MD IMMUNOLOGY AND S EROLOGY ORDERABLES Performing Organization Address [facility] Co de Phone Number [facility] [address] [place] [address] * VITAMIN B12 (07/04/2011 14:46 EDT) Vitamin B-12 542 211 - 911 pg/ml [facility] Blood specimen (specimen) 07/04/2011 14:46 EDT 07/04/2011 15:46 EDT Bertrand Butler MD CHEMISTRY & BLOO D GAS ORDERABLES Performing Organization Address [facility] Co de Phone Number [facility] [address] [place] [address] * FOLATE (07/04/2011 14:46 EDT) Folate >24.0 ng/mL [facility] Comment: Deficient: ??Less than 3.4 ng/mL Indeterminate: ??3.4-5.4 ng/mL Normal: ??Greater than 5.4 ng/mL Blood specimen (specimen) 07/04/2011 14:46 EDT 07/04/2011 15:46 EDT Bertrand Butelr MD CHEMISTRY & BLOO D GAS ORDERABLES Performing Organization Address [facility] de Phone Number [facility] [address] [place] [address] * (ABNORMAL) HEMAGRAM AND DIFFERENTIAL (07/04/2011 14:46 EDT) WBC 4.38 4.0 - 10.4 K/cmm [facility] RBC 4.55 4.36 - 5.78 M/cmm [facility] Hemoglobin 15.3 13.8 - 17.3 gm/dl [facility] HCT 45.5 39.5 - 50.2 % [facility] MCV 100(H) 81 - 95 fl [facility] MCH 33.6(H) 27.6 - 33.0 pg [...] 15:46 EDT Bertrand Butler MD PACKAGES & DEVON HURLEY ORDERABLES [facility] [address] [place] [address] * COMPREHENSIVE METABOLIC PANEL (CMP) (07/04/2011 14:46 [...] BLOO D GAS ORDERABLES Performing Organization Address City/State/[facility] Co de Phone Number [facility] [address] [place] [address] * CT HEAD WO CONTRAST (07/04/2011 14:27 EDT) Anatomical Region Laterality Modality Other 07/04/2011 14:2 7 EDT 07/04/2011 17:19 EDT Narrative 07/04/2011 17:[address] HEAD W/O CONTRAST ??July 04, 2011 02:27:00 PM Signs and Symptoms/Comments: ??780.93-MEMORY [id number]-4-CM Increased Memory Deficit. okd by mckenna Comparison: ??no comparison available. Technique: Axial noncontrast scans of the brain were performed from the foramen magnum to the vertex. Images were then presented in the axial plane in soft tissue and bone windows and the coronal plane in soft tissue and bone windows. Findings: The ventricles and extra-axial CSF spaces are normal for age. There is mild bilateral basal ganglia calcification There is no mass effect or midline shift. No intracranial hemorrhage is seen. The orbits are free of abnormalities. The paranasal sinuses are clear. There is fatty infiltration of the visualized portion of the left parotid gland and a combination of vessels and small lymph nodes in the expected location of the gland. This is probably of no significance and unrelated to the given history. Impression: 1. Very mild bilateral basal ganglia calcification is likely idiopathic/physiologic but can be seen in hyperparathyroidism, pseudohypoparathyroidism, Fahr's disease, or prior chemotherapy/radiation therapy. 2. Fatty infiltration of the visualized portion of the left parotid gland with combination of vessels and small lymph nodes which is likely of no significance. This is unrelated to the history but could be further evaluated with otolaryngology consultation if felt to be indicated. I have personally reviewed the images and the above interpretation and agree with the findings. Procedure Note Abdias Miranda MD - 07/04/2011 CT HEAD W/O CONTRAST July 04, 2011 02:27:00 PM Signs and Symptoms/Comments: 780.93-MEMORY [id number]-[id number]-5-CM Increased Memory Deficit. okd by mckenna Comparison: no comparison available. Technique: Axial noncontrast scans of the brain were performed from the foramen magnum to the vertex. Images were then presented in the axial plane in soft tissue and bone windows and the coronal plane in soft tissue and bone windows. Findings: The ventricles and extra-axial CSF spaces are normal for age. There is mild bilateral basal ganglia calcification There is no mass effect or midline shift. No intracranial hemorrhage is seen. The orbits are free of abnormalities. The paranasal sinuses are clear. There is fatty infiltration of the visualized portion of the left parotid gland and a combination of vessels and small lymph nodes in the expected location of the gland. This is probably of no significance and unrelated to the given history. Impression: 1. Very mild bilateral basal ganglia calcification is likely idiopathic/physiologic but can be seen in hyperparathyroidism, pseudohypoparathyroidism, Fahr's disease, or prior chemotherapy/radiation therapy. 2. Fatty infiltration of the visualized portion of the left parotid gland with combination of vessels and small lymph nodes which is likely of no significance. This is unrelated to the history but could be further evaluated with otolaryngology consultation if felt to be indicated. I have personally reviewed the images and the above interpretation and agree with the findings. Bertrand Butler MD IMG CT ORDERABLE S documented in this encounter Visit Diagnoses Diagnosis Memory loss- Primary documented in this encounter Care Teams Backup Sawyer Relationship Specialty Start Date End Date Neelima Corona MD [address] [place] [phone] PCP - General 03/10/11 documented as of this encounter
--- OUTSIDE RECORDS SUMMARY | 2023-10-08 02:11 | XMS_ITS | Encounter Summary ---
Author Organization [facility] Address [facility] [place] [address] Care Team Providers Care Sparker And Patcher Name Role Phone Neelima Corona MD Primary Care Provider [phone] Encounter Details Date Type Department Care Team (Late st Contact Info) Description 08/01/2023 Telephone Dermatology at [facility] [address] [place] [address] Charlie Stauffer MD [facility] [address] [address] Social History Tobacco Use Types Packs/Day Years Used Date Smoking Tobacco: Never Assessed Sex and Gender Information Value Date Recorded Sex Assigned at Not on file Gender Identity Not on file Sexual Orientation Not on file documented as of this encounter Miscellaneous Notes * Telephone Encounter - Margie Crenshaw - 08/01/2023 3:12 PM EDT Received a call from Sonia. Pt is needing a PA for soolantra 1% cream. Thank you, Mirian documented in this encounter Plan of Treatment Upcoming Encounters Date Type Department Care Team (Late st Contact Info) Description 10/23/2023 10:00 AM EDT Office Visit Dermatology at [facility] [address] [place] [address] Charlie Stauffer MD [facility] DR [address] [address] documented as of this encounter Visit Diagnoses Not on filedocumented in this encounter Care Teams Sparker And Patcher Relationship Specialty Start Date End Date Neelima Corona MD [facility] SHAYY ROWLAND [address] [address] PCP - General 01/25/10 documented as of this encounter
--- OUTSIDE RECORDS SUMMARY | 2023-10-08 02:11 | XMS_ITS | Clinical Summary ---
Author Organization [facility] [place] [address] Care Team Providers Care Telecommunications Line Mechanic Name Role Phone Neelima Corona MD Primary Care Provider [phone] Allergies No known active allergies Medications Medication Sig Dispensed Refills Start Date End Date Status levothyroxine (Synthroid) 112 mcg Tablet Take 112 mcg by mouth Daily. Active probenecid (Benemid) 500 mg Tablet TAKE ONE TABLET BY MOUTH EVERY DAY 01/20/2020 Active multivitamin (THERAGRAN) Tablet Take 1 tablet by mouth daily. With iron Active cephALEXin (Keflex) 500 mg Capsule TAKE 4 CAPSULES BY MOUTH 1 HOUR PRIOR TO DENTAL APPOINTMENT 12/30/2019 Active triamcinolone (KENALOG) 0.1 % OintmentIndications: Psoriasis Apply to rash on the chest, arms twice daily for 2 weeks, take 1 week off, repeat as needed, DO NOT apply to face 80 g 03/09/2020 Active hydrocortisone 2.5 % OintmentIndications: Seborrheic dermatitis Apply topically to rash on the face twice daily for 7-10 days, take 5 day break and repeat for flares 30 g 12/27/2020 Active pimecrolimus (ELIDEL) 1 % CreamIndications:[place] orrheic dermatitis Apply to the face twice daily as needed then decrease to 2-3 times weekly for maintenance 60 g 3 07/04/2021 Active OMEPRAZOLE, BULK, MISC by Misc.(Non-Drug; Combo Route) route. Active Azelaic Acid (FINACEA) 15 % GelIndications:Rosac ea Apply topically to the face every morning. 30 g 3 07/24/2023 Active ivermectin (Soolantra) 1 % CreamIndications:Ros acea Apply topically to the affected areas on the face every night. Do this for AT LEAST 3 months. 45 g 5 07/24/2023 Active Active Problems Problem Noted Date Diagnosed Date Down syndrome 12/27/2020 Esotropia 12/27/2020 Overview (12/27/2020): Right. Hypothyroidism 12/27/2020 Rosacea 12/27/2020 Seborrheic dermatitis 12/27/2020 Pseudophakia 08/28/2013 Encounters Date Type Department Care Team Description 08/01/2023 Telephone Dermatology at [facility] [address] [place] [address] Penelope Danielle MA Prior Authorization (ivermectin (Soolantra) 1 % Cream) 08/01/2023 Telephone Dermatology at [facility] [address] [facility] [place] [address] Charlie Stauffer MD 07/26/2023 Orders Only Dermatology at [facility] [address] [facility] [place] [address] Charlie Stauffer MD Rosacea 07/26/2023 Telephone Dermatology at [facility] [address] [facility] [place] [address] Charlie Stauffer MD 07/26/2023 Telephone Dermatology at [facility] [address] [facility] [place] [address] Corky Pickard CMA Prior Authorization (Azelaic Acid (FINACEA) 15 % Gel ) 07/24/2023 10:30 AM EDT Office Visit Dermatology at [facility] [address] [facility] [place] [address] Charlie Stauffer MD Rosacea; Seborrheic dermatitis 07/24/2023 Travel from Last 3 Months Social History Tobacco Use Types Packs/Day Years Used Date Smoking Tobacco: Never Assessed Sex and Gender Information Value Date Recorded Sex Assigned at Not on file Gender Identity Not on file Sexual Orientation Not on file Plan of Treatment Upcoming Encounters Date Type Department Care Team (Late st Contact Info) Description 10/23/2023 10:00 AM EDT Office Visit Dermatology at [facility] [address] [place] [address] Charlie Stauffer MD [facility] [place] [address] Health Maintenance Due Date Last Done Comments CT Colonography 1975 Colonoscopy 1973 Colorectal Cancer Screening 1975 FIT DNA 1973 FIT 1975 Sigmoidoscopy (10 year) with FIT yearly 1975 Sigmoidoscopy 1975 HIV screen 08/23/1991 Hepatitis C Screening 08/23/1991 Lipid Screening 08/23/1991 Hepatitis B vaccine (0-59 yrs) (1) 1992 Tdap adult 1992 Tetanus vaccine 1992 Covid-19 Vaccine (1 - 2022-24 season) 2022 Zoster vaccine (1 of 2) 08/23/2023 Influenza (Flu) vaccine (1 o f 1 - Influenza standard series) 11/04/2023 Care Teams Telecommunications Line Mechanic Relationship Specialty Start Date End Date Neelima Corona MD [address] [place] [address] [facility] - General 01/25/10
--- OUTSIDE RECORDS SUMMARY | 2023-10-08 02:11 | XMS_ITS | Encounter Summary ---
Author Organization [facility] Address [address] [place] [address] Care Team Providers Care Warehouse Attendant Name Role Phone Unavailable Primary Care Provider Unavailabl e Encounter Details Date Type Department Care Team (Late st Contact Info) Description 09/03/2006 14:46 EDT Hospital Encounter [address] [address] Asher Hirsch MD [address] [place] [address], [facility] [address] [place] [phone] Discharge Disposition: Auto Discharge Social History Tobacco Use Types Packs/Day Years Used Date Smoking Tobacco: Never Assessed Sex and Gender Information Value Date Recorded Sex Assigned at Not on file Gender Identity Not on file Sexual Orientation Not on file documented as of this encounter Discharge Disposition Disposition Code Departure Means Destination Auto Discharge documented in this encounter Plan of Treatment Not on file documented as of this encounter Visit Diagnoses Not on filedocumented in this encounter
--- OUTSIDE RECORDS SUMMARY | 2023-10-08 02:11 | XMS_ITS | Encounter Summary ---
Author Organization [facility] Address [facility] [place] [address] Care Team Providers Care Junior Paralegal Name Role Phone Neelima Corona MD Primary Care Provider [phone] Reason for Visit * Reason Onset Date Comments Prior Authorization 08/01/2023 ivermectin ( Soolantra) 1 % Cream Encounter Details Date Type Department Care Team (Late st Contact Info) Description 08/01/2023 Telephone Dermatology at [facility] [address] [place] [address] Penelope Danielle MA Prior Authorization (ivermectin (Soolantra) 1 % Cream) Social History Tobacco Use Types Packs/Day Years Used Date Smoking Tobacco: Never Assessed Sex and Gender Information Value Date Recorded Sex Assigned at Not on file Gender Identity Not on file Sexual Orientation Not on file documented as of this encounter Miscellaneous Notes * Telephone Encounter - Lisbeth Tate CMA - 08/01/2023 9:43 PM EDTSummary: Approval Submitted Date: Submitted Date: 08/01/2023 Next Review Date: Next Review Date: 03/04/2024 PA Outcome: PA Approval Medication Prior Authorization Approval Approved: Ivermectin 1% cream Start Date: 03/05/2023 End Date: 03/04/2024 Case/Reference #: [id number] Approval Letter will be scanned into media once received. * Telephone Encounter - Penelope Danielle MA - 08/01/2023 4:27 PM EDTSummary: SOLAN Request ivermectin (Soolantra) 1 % Cream PA Submitted Submitted Date: Date Submitted: 08/01/2023 Medication Prior Authorization Patient: Bertrand Lopez Patient : 1975 Insurance Company: [employer] Sent via: [employer] Brooks: [id number] Physician: Neelima Corona MD Medication Requested: ivermectin (Soolantra) 1 % Cream Frequency/Sig: Apply topically to the affected areas on the face every night. Do this for AT LEAST 3 months. Disp: 45 g Refills: 5 Currently taking: NO If yes, how long: Diagnosis for this medication: Rosacea [L71.9] Prior medications trialed in this patient: Medication: azelaic acid 15% gel Approx Dates: 07/24/23 Outcome/Adverse Reactions: Inadequate response Medication: doxycycline monohydrate (Monodox) 100 mg Capsule Approx Dates: 05/11/20-07/24/23 Outcome/Adverse Reactions: Inadequate response Medication: hydrocortisone 2.5 % Ointment Approx Dates: 03/09/20 -present Outcome/Adverse Reactions: Inadequate response alone Medication: triamcinolone (KENALOG) 0.1 % Ointment Approx Dates: 03/09/20 Outcome/Adverse Reactions: inadequate response Medication: metroNIDAZOLE (METROCREAM) 0.75 % Cream Approx Dates: 05/11/20-07/24/23 Outcome/Adverse Reactions: inadequate response Additional Notes: 07/24/2023 Office Notes of Charlie Stauffer MD Dermatology Assessment/Plan #. Rosacea - Scattered red, acneiform papules/pustules in a background of erythema on the central face. - Discussed common triggers, including alcohol, exercise, caffeine, spicy foods, sun exposure, and extreme temperatures. -partial improvement with prior topicals - Start Rx azelaic acid 15% gel: Apply topically to the face every morning. - Start Rx: Ivermectin (Soolantra) 1% cream. Apply topically to the affected areas on the face every night. - Recommend doing this for at least a 3-month course. documented in this encounter Plan of Treatment Upcoming Encounters Date Type Department Care Team (Late st Contact Info) Description 10/23/2023 10:00 AM EDT Office Visit Dermatology at [facility] [address] [place] [address] Charlie Stauffer MD [facility] [place] [address] documented as of this encounter Visit Diagnoses Not on filedocumented in this encounter Care Teams Junior Paralegal Relationship Specialty Start Date End Date Neelima Corona MD [facility] SHAYY ROW[address] [address] PCP - General 01/25/10 documented as of this encounter
--- OUTSIDE RECORDS SUMMARY | 2023-10-08 02:11 | XMS_ITS | Encounter Summary ---
Author Organization [facility] Address [address] [place] [address] Care Team Providers Care Sap Plant Maintenance Consultant Name Role Phone Unavailable Primary Care Provider Unavailabl e Encounter Details Date Type Department Care Team (Late st Contact Info) Description 06/10/1999 9:46 EDT Hospital Encounter [facility] [address] [place] [address] Bertrand Rabago MD [address] [place] [address] [place] [phone] Social History Tobacco Use Types Packs/Day Years [...]
--- OUTSIDE RECORDS SUMMARY | 2023-10-08 02:11 | XMS_ITS | Encounter Summary ---
Author Organization [facility] Address [facility] [place] [address] Care Team Providers Care Business Mgr Name Role Phone Neelima Corona MD Primary Care Provider [phone] Reason for Visit * Reason Onset Date Comments Prior Authorization 07/26/2023 Azelaic Acid (FINACEA) 15 % Gel Encounter Details Date Type Department Care Team (Late st Contact Info) Description 07/26/2023 Telephone Dermatology at [facility] [address] [place] [address] Corky Pickard CMA Prior Authorization (Azelaic Acid (FINACEA) 15 % Gel ) Social History Tobacco Use Types Packs/Day Years Used Date Smoking Tobacco: Never Assessed Sex and Gender Information Value Date Recorded Sex Assigned at Not on file Gender Identity Not on file Sexual Orientation Not on file documented as of this encounter Miscellaneous Notes * Telephone Encounter - Joana Morrison CMA - 07/26/2023 9:43 AM EDTSummary: Approval Submitted Date: Submitted Date: 07/26/2023 Next Review Date: Next Review Date: 03/04/2024 PA Outcome: PA Approval Medication Prior Authorization Approval Approved: Azelaic Acid 15% gel Start Date: 07/26/2023 End Date: 03/04/2024 Approval Letter will be scanned into media once received. * Telephone Encounter - Corky Pickard CMA - 07/26/2023 9:00 AM EDT PA Submitted Submitted Date: Date Submitted: 07/26/2003 Medication Prior Authorization Patient: Bertrand Lopez Patient : 1975 Insurance Company: [email or web address] Sent via: COUNTS INCLUDE [facility] BEDS AT [facility] Brooks: [id number] Physician: Charlie Stauffer MD Medication Requested: Azelaic Acid (FINACEA) 15 % Gel Frequency/Sig: Apply topically to the face every morning. Disp: 30 g Refills: 3 Currently taking: no If yes, how long: Diagnosis for this medication: Rosacea [L71.9] Prior medications trialed in this patient: Medication: doxycycline Approx Dates: 05/2020-07/2023 Outcome/Adverse Reactions: Inadequate response Medication: ivermectin 1% cream Approx Dates: current Outcome/Adverse Reactions: Inadequate response Medication: metronidazole cream Approx Dates: 05/2020-07/2023 Outcome/Adverse Reactions: Inadequate response Additional Notes: documented in this encounter Plan of Treatment Upcoming Encounters Date Type Department Care Team (Late st Contact Info) Description 10/23/2023 10:00 AM EDT Office Visit Dermatology at [address] [address] Charlie Stauffer MD [facility] [address] [place] [address] documented as of this encounter Visit Diagnoses Not on filedocumented in this encounter Care Teams Business Mgr Relationship Specialty Start Date End Date Neelima Corona MD [facility] SHAYY LOREDO [address] [place] [phone] PCP - General 01/25/10 documented as of this encounter
--- OUTSIDE RECORDS SUMMARY | 2023-10-08 02:11 | XMS_ITS | Encounter Summary ---
Author Organization [facility] Address [address] [place] [address] Care Team Providers Care Material Clerk Name Role Phone Unavailable Primary Care Provider Unavailabl e Encounter Details Date Type Department Care Team (Late st Contact Info) Description 03/13/2007 14:11 EST Hospital Encounter [facility] [address] [place] [address] Asher Hirsch MD [address] [place] [address], [facility] [address] [place] [phone] Social History Tobacco Use Types Packs/Day Years [...]
--- OUTSIDE RECORDS SUMMARY | 2023-10-08 02:11 | XMS_ITS | Encounter Summary ---
Author Organization [facility] Address [address] [place] [address] Care Team Providers Care Pilates Instructor Name Role Phone Neelima Corona MD Primary Care Provider [phone] Reason for Visit * Reason Comments Downs Syndrome Family is definitely seeing memory changes and he has an upcoming appt. with the memory clinic. Feeling well and doing well, he is a 5 sport athlete in special olympics. Encounter Details Date Type Department Care Team (Late st Contact Info) Description 05/16/2011 13:00 EDT Office Visit [facility] - [address] [place] [address] Bertrand Rabago MD [address] [place] [address] [address] [place] [address] Down's syndrome (Primary Dx) Social History Tobacco Use [...] Sign Reading Time Taken Comments Blood Pressure 116/80 05/16/2011 1257 EDT Pulse 50 05/16/2011 1257 EDT Temperature - - Respiratory Rate - - Oxygen Saturation 98% 05/16/2011 1257 EDT Inhaled Oxygen Concentration - - Weight 72.6 kg (160 lb) 05/16/2011 1257 EDT Height 162.6 cm (5' 4) 05/16/2011 1257 EDT Body Mass Index 27.46 05/16/2011 1257 EDT documented in this encounter Progress Notes * Bertrand Rabago MD - 05/17/2011 0653 EDT RE: NAME: BERTRAND PRATER : 1975 PROGRESS/FOLLOWUP NOTE - 05/16/2011 Neelima Corona MD [address], [address] [place] [address] Dear Neelima: On 05/16/2011, I had the pleasure of seeing Bertrand Prater in followup in our clinic for adults withDown syndrome. Bipin is now 35 years old. In addition to his Down syndrome, he has a history of hypothyroidism, gout, cataracts, esotropia, and hyperlipidemia. There is some concern that Bipin may be developing some memory issues. I last saw Bipin on 11/30/2004. Since that time, his gout has been under good control and he has become more active in [employer] Olympics now participating in five different activities. He has also lost greater than 20 pounds of weight since that time. On a day-to-day basis, he seems to do well. According to his sister and [id number], he is still able to do most of the things that he was able to do before. However, they have noticed that he needs a bit more prompting than he did in the past and he occasionally forgets some things that he did not forget in the past. Since I last saw Bipin in 2004, he has had a cataract removed. Otherwise, there has been no other significant medical issues. He sees an eye doctor on a regular basis. He has not had his hearing tested recently. He does receive an annual influenza vaccination. He continues on thyroid replacement therapy. Laboratory evaluation in 02/2011, revealed a normal TSH at 3.0. His kidney function was normal. Medications: Levothyroxine 112 mcg daily. Probenecid. Multivitamin. Allergies: None known. Objective: Well-appearing, pleasant gentleman with features consistent with Down syndrome. Blood pressure 116/80, heart rate 50 (regular), oxygen saturation 98% on room air. Weight 160 pounds and height 64 inches. His calculated BMI was 27.5. HEENT: Anicteric sclerae, normal conjunctivae, normal mucous membranes. Tonsils were not enlarged. Bilateral external auditory canals were widely patent andboth tympanic membranes looked normal. Neck: No obvious thyromegaly or adenopathy. Lungs: Clear to auscultation bilaterally. Cardiovascular: No jugular venous distention. Carotids: Normal upstroke and volume. Palpation: Unremarkable. Auscultation: Normal first and second heart sounds. There was no s ystolic murmur, diastolic murmur, gallop, click, or rub. Abdomen: Grossly unremarkable. There was no obvious hepatosplenomegaly. Extremities: No clubbing, cyanosis or edema. Assessment and Plan: Bipin Prtaer is a 35-year-old gentleman with Down syndrome and problems as noted above. Overall, he seems to be doing extremely well. From a physical perspective, I think Bipin is doing quite well. It is hard for me to determine whether he has had some definitive memory loss or not. Alzheimer's type dementia is more common in adults with Down syndrome but, in my observation, itmost commonly occurs when patients are their 50s (sixth decade of life). In my opinion, this would be early to develop an Alzheimer's type dementia. Bipin has an appointment to be seen in the memory disorders clinic and they will render further thoughts on this matter. I recommend that Bipin have his ears tested to make sure that hearing deficiency is not contributing to some of the mild abnormalities that have been noted by the family. There appears to be an extensive family history of cardiac disease, especially atrial fibrillation in Bipin's family. Both of Bipin's brothers have atrial fibrillation. Bipin had a nice normal heart rate today. It is certainly consistent with a sinus rhythm. I did not feel the need to check an electroc ardiogram. Also, adults with Down syndrome seem to be protected against acquired cardiovascular disease. Hypertension and atherosclerotic disease are exceedingly rare. I recommend continued observation of Bipin's lipids rather than medical therapy. I put Bipin down to see me again in 3 years, but I would be delighted to see him sooner if needed. Please contact me with any questions or concerns. Sincerely, Electronically Signed by Bertrand Rabago MD, [facility] 05/19/2011 11:14 Bertrand Rabago MD, [facility] - Bertrand Rabago MD, [facility] - CD Job ID: SM Doc ID: [id number] Ext Doc ID: [id number] cc: Neelima Corona MD * Bertrand Rabago MD - 05/16/2011 1334 EDT This office note has been dictated. documented in this encounter Plan of Treatment Not on file documented as of this encounter Visit Diagnoses Diagnosis Down's syndrome- Primary documented in this encounter Historical Medications * This list may reflect changes made after this encounter. Medication Sig Dispensed Refills Start Date End Date PV W-O NATALIE/FERROUS FUMARATE/FA (M-VIT ORAL) Take by mouth. PROBENECID ORAL Take 500 mg by mouth daily levothyroxine (SYNTHROID) 112 mcg tablet Take 112 mcg by mouth daily. added in this encounter Care Teams Pilates Instructor Relationship Specialty Start Date End Date Neelima Corona MD [address] [place] [id number] PCP - General 03/10/11 documented as of this encounter
--- OUTSIDE RECORDS SUMMARY | 2023-10-08 02:11 | XMS_ITS | Encounter Summary ---
Author Organization [facility] Address [facility] [place] [address] Care Team Providers Care Certified Shorthand Reporter Name Role Phone Neelima Corona MD Primary Care Provider [phone] Encounter Details Date Type Department Care Team (Late st Contact Info) Description 07/04/2021 1:00 PM EDT Office Visit Dermatology at [facility] [address] [place] [address] Charlie Stauffer MD [facility] [address] [place] [address] Seborrheic dermatitis; Psoriasis Social History Tobacco Use Types Packs/Day Years Used Date Smoking Tobacco: Never Assessed Sex and Gender Information Value Date Recorded Sex Assigned at Not on file Gender Identity Not on file Sexual Orientation Not on file documented as of this encounter Progress Notes * Charlie Stauffer MD - 07/04/2021 1:00 PM EDT Images from the original note were not included. DEPARTMENT OF DERMATOLOGY Medical Dermatology Clinic Provider: Charlie Stauffer MD Patient's preferred name Bill Preferred contact method for results [x]Phone []myD-H []Letter Detailed phone message OK? Yes Are there any other people with whom we may discuss your care? Sonia, sister in law Zafar, brother Past Medical History Date, location, treatment Melanoma N Dysplastic nevi N SCC N BCC N AKs N Other relevant past medical history Psoriasis Rosacea Seborrheic dermatitis?? Family History Details Melanoma N NMSC N Other relevant family history N Social History Occupation: not employed Pre-Procedure Questions Details Allergy to lidocaine, epinephrine, Dermabond, chlorhexidine, or adhesives N Bleeding disorder or blood thinners N Pacemaker, defibrillator, deep brain stimulator, cochlear implant N History of Present Illness: Bertrand Lopez is a 45 y.o. Patient returns to clinic today for a follow up of seborrheic dermatitis and rosacea. - eczema on the chest and arms, only has flared up once since his last appointment - sebderm on the face and scalp, they use hydrocortisone 2.5% cream just completed a course of hydrocortisone 7 days ago, has done 7 course of 10 days at a time since he was last seen, uses CeraVe onthe face, dove sensitive for body wash, uses head and shoulder or t-gel for the hair, scalp is improved. Last visit at Dermatology: 12/27/2020 Last visit with this provider: 12/27/2020 Medications: Reviewed in eD-H Allergies: Reviewed in eD-H Skin Examination: Focused skin examination of the face and scalp was normal with the exception of the findings below. Assessment/Plan #. Seborrheic Dermatitis - Yellowish, greasy scale overlying erythematous patches on the . - Discussed etiology and treatment options including T/Gel, ketoconazole shampoo, or a topical steroid. -Hx of intermittent flaring and use of topical shampoos and use of topical tar compounded for scalpinvolvement in the past -Flaring on the face with partial response to OTC shampoos and hydrocortisone cream Plan: - Start Rx: Elidel cream - apply to the face twice daily as needed - continue OTC T-gel and Head and Shoulders shampoo as needed # Psoriasis - xerotic scaling on the trunk and extremities, no active rash - continue regular moisturization - Continue to use Rx: triamcinolone, PRN RTC: 3 months for tova derm follow up []Note routed to litigation legal secretary []Recall placed in scheduling system [x]Appointment scheduled at checkout Scribe attestation: Clinton Nicole CMA has performed the documentation for this encounter in the presence of and acting as a scribe for Charlie Stauffer MD. I performed the above scribed service and agree with the accuracy of the documentation in this encounter. Reviewed and signed by: Charlie Stauffer MD [facility] documented in this encounter Plan of Treatment Upcoming Encounters Date Type Department Care Team (Late st Contact Info) Description 10/23/2023 10:00 AM EDT Office Visit Dermatology at [place] [address] [place] [address] Charlie Stauffer MD [facility] DR [address] [place] [address] documented as of this encounter Visit Diagnoses Diagnosis Seborrheic dermatitis Seborrheic dermatitis, unspecified Psoriasis Other psoriasis documented in this encounter Care Teams Certified Shorthand Reporter Relationship Specialty Start Date End Date Neelima Corona MD [facility] [address] [place] [address] PCP - General 01/25/10 documented as of this encounter
--- OUTSIDE RECORDS SUMMARY | 2023-10-08 02:11 | XMS_ITS | Encounter Summary ---
Author Organization [facility] Address [address] [place] [address] Care Team Providers Care Count Team Member Name Role Phone Unavailable Primary Care Provider Unavailabl e Encounter Details Date Type Department Care Team (Late st Contact Info) Description 11/30/2004 10:21 EDT Hospital Encounter [facility] [address] [place] [address] Bertrand Rabago MD [address] [place] [address] [place] [address] Social History Tobacco Use Types Packs/Day [...]
--- OUTSIDE RECORDS SUMMARY | 2023-10-08 02:11 | XMS_ITS | Encounter Summary ---
Author Organization [facility] Address [address] [place] [address] Care Team Providers Care Clinical Recruiter Name Role Phone Unavailable Primary Care Provider Unavailabl e Encounter Details Date Type Department Care Team (Late st Contact Info) Description 09/03/2007 9:54 EDT Hospital Encounter [address] [address] Asher Hirsch MD [address] [place] [address], [facility] [address] [place] [id number] Social History Tobacco Use Types Packs/Day Years [...]
--- OUTSIDE RECORDS SUMMARY | 2023-10-08 02:11 | XMS_ITS | Encounter Summary ---
Author Organization [facility] Address [facility] [address] Care Team Providers Care Roller Hand Name Role Phone Neelima Corona MD Primary Care Provider [phone] Encounter Details Date Type Department Care Team (Late st Contact Info) Description 05/03/2020 Telephone Dermatology at [facility] [address] [place] [address] Charlie Stauffer MD [facility] [address] [place] [address] Social History Tobacco Use Types Packs/Day Years Used Date Smoking Tobacco: Never Assessed Sex and Gender Information Value Date Recorded Sex Assigned at Not on file Gender Identity Not on file Sexual Orientation Not on file documented as of this encounter Miscellaneous Notes * Telephone Encounter - Margie Crenshaw - 05/03/2020 3:43 PM EST Spoke to Bertrand Lopez's this afternoon. She called in to mention her 's rash has not gotten better since his last visit in 03/09/20 and after the start of the medications prescribed that day. would please like a follow up call with care suggestions. [phone]. documented in this encounter Plan of Treatment Upcoming Encounters Date Type Department Care Team (Late st Contact Info) Description 10/23/2023 10:00 AM EDT Office Visit Dermatology at [facility] [address] [place] [address] Charlie Stauffer MD [facility] [address] [place] [address] documented as of this encounter Visit Diagnoses Not on filedocumented in this encounter Care Teams Roller Hand Relationship Specialty Start Date End Date Neelima Corona MD [employer] [address] [facility] [address] [place] [address] PCP - General 01/25/10 documented as of this encounter
--- OUTSIDE RECORDS SUMMARY | 2023-10-08 02:11 | XMS_ITS | Encounter Summary ---
Author Organization [facility] [place] [address] Care Team Providers Care Feed Crusher Operator Name Role Phone Neelima Corona MD Primary Care Provider [phone] Reason for Visit * Reason Onset Date Comments Prior Authorization 07/06/2021 Pimecrolimus 1% cream Encounter Details Date Type Department Care Team (Late st Contact Info) Description 07/06/2021 Telephone Dermatology at [facility] [address] [place] [address] Joana Morrison CMA Prior Authorization (Pimecrolimus 1% cream) Social History Tobacco Use Types Packs/Day Years Used Date Smoking Tobacco: Never Assessed Sex and Gender Information Value Date Recorded Sex Assigned at Not on file Gender Identity Not on file Sexual Orientation Not on file documented as of this encounter Miscellaneous Notes * Telephone Encounter - Joana Morrison CMA - 07/07/2021 8:07 AM EDT Medication Prior Authorization for Primary Care Approved: Pimecrolimus Start Date: 03/05/2021 End Date: 03/04/2022 Case/Reference #: [id number] See Approval Letter in scanned documents. Additional Notes: * Telephone Encounter - Joana Morrison CMA - 07/06/2021 10:47 AM EDT Medication Prior Authorization Request received via: Pharmacy Patient: Bertrand Lopez Patient : 1975 Insurance Company: [employer] Sent via: [employer] [place]: [id number] Physician: Charlie Stauffer MD Medication Requested: pimecrolimus (ELIDEL) 1 % Cream Frequency/Sig: Apply to the face twice daily as needed then decrease to 2-3 times weekly for maintenance Disp: 60g Refills: 3 Currently taking: no Diagnosis for this medication: Seborrheic dermatitis (L21.9) Additional Notes: documented in this encounter Plan of Treatment Upcoming Encounters Date Type Department Care Team (Late st Contact Info) Description 10/23/2023 10:00 AM EDT Office Visit Dermatology at [address] [place] [address] Charlie Stauffer MD [facility] [address] [place] [address] documented as of this encounter Visit Diagnoses Not on filedocumented in this encounter Care Teams Feed Crusher Operator Relationship Specialty Start Date End Date Neelima Corona MD [address] [place] [address] PCP - General 01/25/10 documented as of this encounter
--- OUTSIDE RECORDS SUMMARY | 2023-10-08 02:11 | XMS_ITS | Encounter Summary ---
Author Organization [facility] Address [facility] [place] [address] Care Team Providers Care Childcare Attendant Name Role Phone Neelima Corona MD Primary Care Provider [phone] Encounter Details Date Type Department Care Team (Late st Contact Info) Description 07/24/2023 10:30 AM EDT Office Visit Dermatology at [facility] [address] [place] [address] Charlie Stauffer MD [facility] [address] [place] [address] Rosacea; Seborrheic dermatitis Social History Tobacco Use Types Packs/Day Years Used Date Smoking Tobacco: Never Assessed Sex and Gender Information Value Date Recorded Sex Assigned at Not on file Gender Identity Not on file Sexual Orientation Not on file documented as of this encounter Patient Instructions * Patient Instructions* Junior Myers CMA - 07/24/2023 10:30 AM EDT - Start Rx azelaic acid 15% gel: Apply topically to the face every morning. - Start Rx: Ivermectin (Soolantra) 1% cream. Apply topically to the affected areas on the face every night. - Recommend doing this for at least a 3-month course. documented in this encounter Progress Notes * Junior Myers, TELETYPESETTER MONITOR - 07/24/2023 10:30 AM EDT Images from the original note were not included. DEPARTMENT OF DERMATOLOGY Medical Dermatology Clinic Provider: Charlie Stauffer MD Patient's preferred name Ashish Preferred contact method for results [x]Phone []myD-H []Letter Detailed phone message OK? Yes Are there any other people with whom we may discuss your care? Sonia, sister in law Zafar, brother Past Medical History Date, location, treatment Melanoma N Dysplastic nevi N SCC N BCC N AKs N Other relevant past medical history Psoriasis (triamcinolone) Rosacea (metrocream, doxycycline) Seborrheic dermatitis (pimecrolimus) Family History Details Melanoma N NMSC N Other relevant family history N Social History Occupation: not employed Pre-Procedure Questions Details Allergy to lidocaine, epinephrine, Dermabond, chlorhexidine, or adhesives N Bleeding disorder or blood thinners N Pacemaker, defibrillator, deep brain stimulator, cochlear implant N History of Present Illness: Bertrand Lopez is a 47 y.o. Patient returns to clinic today for a FSE. Patient reports: - Uses triamcinolone for eczema. This helps. - Has red spots under the chin and on forehead. Uses Rx: Pimecrolimus. Helped at first, but not helping now. Uses 4 times a month for 3 days at a time. Face is red all the time. Previously used Rx: Metronidazole, but didn't work. Has worsened a ot in the last 6 months. Last visit at Dermatology: 07/04/2021 Last visit with this provider: 07/04/2021 Medications: Reviewed in eD-H Allergies: Reviewed in eD-H Skin Examination: Focused skin examination of the face was normal with the exception of the findings below. Assessment/Plan #. Rosacea - Scattered red, acneiform [...] this for at least a 3-month course. #. Seborrheic Dermatitis - Yellowish, greasy scale overlying erythematous patches on the forehead. - Discussed etiology and treatment options. - Continue Rx pimecrolimus (Elidel) 1% cream: Apply topically to affected areas on the face twice daily as needed. - Counseled possible burning or stinging with initial application. RTC: 3 months for rosacea and seborrheic dermatitis follow-up []Note routed to director of customer service []Recall placed in scheduling system [x]Appointment scheduled at checkout Scribe attestation: Junior Myers CMA has performed the documentation for this encounter in the presence of and acting as a scribe for Charlie Stauffer MD. I performed the above scribed service and agree with the accuracy of the documentation in this encounter. Reviewed and signed by: Charlie Stauffer MD Dermatology [facility] documented in this encounter Plan of Treatment Upcoming Encounters Date Type Department Care Team (Late st Contact Info) Description 10/23/2023 10:00 AM EDT Office Visit Dermatology at [facility] [address] [place] [address] Charlie Stauffer MD [facility] [address] [place] [address] documented as of this encounter Visit Diagnoses Diagnosis Rosacea Seborrheic dermatitis Seborrheic dermatitis, unspecified documented in this encounter Care Teams Childcare Attendant Relationship Specialty Start Date End Date Neelima Corona MD [facility] [address] [place] [address] PCP - General 01/25/10 documented as of this encounter
--- OUTSIDE RECORDS SUMMARY | 2023-10-08 02:11 | XMS_ITS | Encounter Summary ---
Author Organization [facility] Address [facility] [place] [address] Care Team Providers Care Aquatic Ecologist Name Role Phone Neelima Corona MD Primary Care Provider Reason for Visit * Reason Comments Dermatitis * Consultation (Routine) - Specialty Diagnoses / Procedures Referred By Diamond vazquez Referred To Contact Dermatology Diagnoses Seborrheic dermatitis, unspecified Rosacea, unspecified Neelima Corona MD [address] [place] [address] [facility] [address] [place] [address] [facility] Dermatology [address] [place] [address] Referral ID Status Reason Start Date Expiration Date V isits Requested Visits Authorized [id number] Consult, Test & Treat Connection [facility] PCP Updated and/or Approved 02/02/2020 08/01/2020 6 6 Encounter Details Date Type Department Care Team (Late st Contact Info) Description 03/09/2020 3:15 PM EST Office Visit Dermatology at [facility] [address] [place] [address] Charlie Stauffer MD [facility] [address] [place] [address] Seborrheic dermatitis; Psoriasis Social History Tobacco Use Types Packs/Day Years Used Date Smoking Tobacco: Never Assessed Sex and Gender Information Value Date Recorded Sex Assigned at Not on file Gender Identity Not on file Sexual Orientation Not on file documented as of this encounter Patient Instructions * Patient Instructions* Louann Barker - 03/09/2020 3:15 PM EST Psoriasis - Start Rx Triamcinolone 0.1% ointment twice a day to the affected areas on the chest, axillae, andleft arm x 2 weeks, take 1 week off, and repeat as needed. OK to repeat for 2-3 cycles. For maintenance treat 2-3x per week. - Recommended Dove unscented liquid or bar soap, and taking cooler, shorter showers. Seborrheic Dermatitis - Start Rx Hydrocortisone 2.5% ointment apply topically twice a day for 7-10 days. OK take a 5 day break and repeat as needed for flares. - If rash persists, advised to call for additional treatment options. documented in this encounter Progress Notes * Charlie Stauffer MD - 03/09/2020 3:15 PM EST Images from the original note were not included. DERMATOLOGY - CONSULT PATIENT NOTE Date of service: 03/09/2020 Bertrand Lopez : 1975, 44 y.o. Chief Complaint: Chief Complaint Patient presents with ??? Dermatitis HPI: Bertrand Lopez is a 44 y.o. male referred by Neelima Corona with the following concerns: He is here today for a rash on the face. He has a longstanding history of rosacea and seborrheic dermatitis that has been coming and going. The rash has been flaring recently since this spring. Todayis a good day. He is using CeraVe cream on it but otherwise is not treating it. In the past he had tried a coal tar cream on it many years ago. He also has a spot on the chest that he first noticed in october and a spot on the left arm that he first noticed in January. They are not itchy at all, but his sister notes that he has been scratching the area. He is treating with CeraVe cream. His sister notes a family history of psoriasis. Ok to leave a detailed message? Yes Is there anyone with whom we can share your labs and/or biopsy results with? no Relevant Skin History: - Skin cancer (including type): none Family History: Melanoma: none Brother: Eczema Relevant Social History: - single - lives in [place], [place] - here today with sister Meds: Current Outpatient Medications Medication Sig Dispense Refill ??? multivitamin (THERAGRAN) Tablet Take 1 tablet by mouth daily. With iron ??? levothyroxine (Synthroid) 112 mcg Tablet Take 112 mcg by mouth Daily. ??? probenecid (Benemid) 500 mg Tablet TAKE ONE TABLET BY MOUTH EVERY DAY ??? cephALEXin (Keflex) 500 mg Capsule TAKE 4 CAPSULES BY MOUTH 1 HOUR PRIOR TO DENTAL APPOINTMENT No current facility-administered medications for this visit. Allergies: No Known Allergies Review of Systems: - General: Feels well. - Skin: No other skin concerns. Examination: - Constitutional: Patient was alert, well-appearing and in no noticeable distress. - Skin: Focused skin examination of the face, arms, axillae, legs, scalp, neck, back, and hands wasnormal with the exception of the findings listed below. Diagnosis/Skin findings/Assessment/Plan: #. Seborrheic dermatitis - scattered yellow greasy scaly patch on the -advised this is a chronic condition 2nd to Mary Ceja that can be controlled. If worsens or becomes more symptomatic can offer alternative treatments - Start Rx Hydrocortisone 2.5% ointment apply topically twice a day for 7-10 days. Take a 5 day break and repeat as needed for flares. - If not resolved with Hydrocortisone alone, will prescribe Ketoconazole to mix with Hydrocortisone. #. Psoriasis - Flat erythematous plaque on the central chest. Thin scaly plaques on the left arm and bilateral axillae. BSA 2% Plan: - Start Rx Triamcinolone 0.1% ointment twice a day to the affected areas on the chest, axillae, andleft arm x 2 weeks, take 1 week off, and repeat as needed. OK to repeat for 2-3 cycles. For maintenance treat 2-3x per week. - If psoriasis persists, advised to call and return to clinic. RTC: 3 month for Psoriasis & [place] [facility] follow up. Scheduled in room. A copy of today's visit will be sent back to the patients referring provider Note initiated by Clinton Nicole CMA. Clinical scribe: Louann Barker - I am documenting this encounter acting as the scribe for and in the presence of Charlie Stauffer MD. I performed the above scribed service and agree with the accuracy of the documentation in this encounter. Reviewed and signed by Charlie Stauffer MD Department of Dermatology [facility] documented in this encounter Plan of Treatment Upcoming Encounters Date Type Department Care Team (Late st Contact Info) Description 10/23/2023 10:00 AM EDT Office Visit Dermatology at [facility] [address] [place] [address] Charlie Stauffer MD [facility] DR [address] [place] [address] documented as of this encounter Visit Diagnoses Diagnosis Seborrheic dermatitis Seborrheic dermatitis, unspecified Psoriasis Other psoriasis documented in this encounter Care Teams Aquatic Ecologist Relationship Specialty Start Date End Date Neelima Corona MD [facility] [address] [place] [address] PCP - General 01/25/10 documented as of this encounter
--- OUTSIDE RECORDS SUMMARY | 2023-10-08 02:11 | XMS_ITS | Encounter Summary ---
Author Organization [facility] Address [facility] [place] [place] [address] Care Team Providers Care Blood Bank Attendant Name Role Phone Neelima Corona MD Primary Care Provider Encounter Details Date Type Department Care Team (Late st Contact Info) Description 07/26/2023 Orders Only Dermatology at [facility] [address] [place] [address] Charlie Stauffer MD [facility] [address] [place] [address] Rosacea Social History Tobacco Use Types Packs/Day Years [...] 10:00 AM EDT Office Visit Dermatology at [facility] [address] [place] [phone] Charlie Stauffer MD [facility] [address] [place] [address] documented as of this encounter Visit Diagnoses Diagnosis Rosacea documented in this encounter Care Teams Blood Bank Attendant Relationship Specialty Start Date End Date Neelima Corona MD [address] [place] [address] PCP - General 01/25/10 documented as of this encounter
--- OUTSIDE RECORDS SUMMARY | 2023-10-08 02:11 | XMS_ITS | Encounter Summary ---
Author Organization [facility] Address [facility] [place] [address] Care Team Providers Care Dialysis Rn Name Role Phone Neelima Corona MD Primary Care Provider [phone] Encounter Details Date Type Department Care Team (Late st Contact Info) Description 07/26/2023 Telephone Dermatology at [facility] [address] [place] [phone] Charlie Stauffer MD [facility] [address] [place] [address] Social History Tobacco Use Types Packs/Day Years Used Date Smoking Tobacco: Never Assessed Sex and Gender Information Value Date Recorded Sex Assigned at Not on file Gender Identity Not on file Sexual Orientation Not on file documented as of this encounter Miscellaneous Notes * Telephone Encounter - Lyric Salgado LPN - 07/26/2023 4:41 PM EDT Called paitent and left message that we could not find a [facility] in [place] * Telephone Encounter - Margie Crenshaw - 07/26/2023 2:23 PM EDT Pt's sister in law called stating we did not send prescriptions to pharmacy for Bertrand. Prescriptions were sent pharmacy on file but they would like them resent to [facility] in [place], [place]. documented in this encounter Plan of Treatment Upcoming Encounters Date Type Department Care Team (Late st Contact Info) Description 10/23/2023 10:00 AM EDT Office Visit Dermatology at [facility] [address] [place] [address] Charlie Stauffer MD [facility] [address] [place] [address] documented as of this encounter Visit Diagnoses Not on filedocumented in this encounter Care Teams Dialysis Rn Relationship Specialty Start Date End Date Neelima Corona MD [facility] [address] [place] [address] PCP - General 01/25/10 documented as of this encounter
--- OUTSIDE RECORDS SUMMARY | 2023-10-08 02:11 | XMS_ITS | Encounter Summary ---
Author Organization [facility] Address [address] [place] [address] Care Team Providers Care Director Of Strategic Sourcing Name Role Phone Unavailable Primary Care Provider Unavailabl e Encounter Details Date Type Department Care Team (Late st Contact Info) Description 06/06/2006 Before PRISM Converted Visit (Maple) [facility] - Maple conversion [address] [place] [address] Asher Hirsch MD [address] [facility], [facility] [address] [place] [id number] Social History Tobacco Use Types Packs/Day Years Used Date Smoking Tobacco: Never Assessed Sex and Gender Information Value Date Recorded Sex Assigned at Not on file Gender Identity Not on file Sexual Orientation Not on file documented as of this encounter Progress Notes * Asher Hirsch MD - 01/06/2009 0432 EST DIVISION OF OPHTHALMOLOGY [facility] PROGRESS/FOLLOWUP NOTE - 06/06/2006 Neelima Corona MD [facility] [address] [place] [address] Corona: I had the opportunity to see Bertrand Lopez for an ophthalmic examination on June 06, 2006. Mr. Lopez is a 30-year-old man with trisomy 21, who apparently also has a history of gout and hypothyroidism. He has a history of esotropia as well. His caregiver notes that he rubs his eyes frequently, and appears to be having increasing difficulty with his vision, and apparently with his abilityto perform activities of daily living. Visual acuity without correction was found to be 20/80-1 right eye and 20/100-1 left eye, with no improvement in visual acuity noted with refraction today. No afferent pupillary defect was noted. Intraocular pressures by David-Pen were found to be normalat 15 mmHg right eye, and 11 mmHg left eye. Slitlamp examination showed no evidence of keratoconus. Dense posterior subcapsular cataract was present in the left eye, while moderate posterior subcapsular cataract was present in the right eye. Mr. Lopez was unable to cooperate well with funduscopic examination. In summary, Mr. Lopez has posterior subcapsular cataract, which is visually significant and is quite dense in his left eye. He also has right esotropia, and appears to have a history of amblyopia affecting the right eye, and has trisomy 21. I discussed the risks and benefits of cataract surgery with the patient's caregiver, and I believe that the procedure has a very good chance of improving his vision, and hopefully, his quality of life as well. Idiscouraged Mr. Lopez from rubbing his eyes postoperatively, and plan to place sutures across the corneal incisions if he does have cataract surgery. Mr. Lopez would also experience poorreading vision without correction postoperatively, as currently available intraocular lenses tend to only correct visual acuity in the distance. Given the density of the posterior subcapsular cataract, however, I did advise his caregiver to consider cataract surgery for his left eye. We have tentatively planned this procedure for August 27, 2006, and plan to recheck our biometry measurements at the time of the procedure (tests of axial length and keratometry to determine the intraocular lens power for the procedure). I appreciate the opportunity to take part in his care. With best regards, Signed by Asher Hirsch MD 08/24/2006 16:41 Andreas Jose MD Asher Hirsch MD -Asher Hirsch MD -GLT Job ID: [id number] Doc ID: [id number] cc: Neelima Corona MD documented in this encounter Plan of Treatment Not on file documented as of this encounter Visit Diagnoses Not on filedocumented in this encounter
--- NOTE | 2023-10-08 09:56 | DI.RAD_ITS ---
Exam(s) XR FOOT RT COMPLETE EXAM: XR FOOT RT COMPLETE CLINICAL HISTORY: Right foot pain,m79.671. TECHNIQUE: 2D digital imaging was performed. Three views. COMPARISON: No exams were available for comparison FINDINGS: BONES: No acute fracture is present. No bony destructive lesion is seen. Small Enthesophyte at the A chilles insertion. JOINTS: No dislocation present. Moderate hallux valgus. No significant degenerative changes at 1st MTP joint. Plantar arch is maintained. SOFT TISSUE: Normal. IMPRESSION: Moderate hallux valgus. DATA REPOSITORY: RADIATION DOSE DELIVERED:
== END ==
PROVIDERS: PCP Family Medicine; Visit Provider Podiatrist
DX: M79.671 Pain in right foot (principal); M20.11 Hallux valgus (acquired), right foot
CPT/HCPCS: 73630

== ENCOUNTER → 2024-02-04 10:29 | Outpatient (BNVA) | payer MEDICARE, MEDICAID, SELFPAY | PROVIDERS: PCP Family Medicine; Referring Provider Family Medicine; Visit Provider Podiatrist | DX: L60.3 Nail dystrophy (principal); B35.1 Tinea unguium; L84 Corns and callosities ==

== ENCOUNTER → 2024-06-09 10:21 | Outpatient (BNVA) | payer MEDICARE, MEDICAID, SELFPAY | PROVIDERS: PCP Family Medicine; Referring Provider Family Medicine; Visit Provider Podiatrist ==

== ENCOUNTER 2024-07-11 21:11 | Outpatient (REF) | payer MEDICARE, MEDICAID, SELFPAY ==
[2024-07-11 16:28] LABS: HCT 45.7 % (40.0-50.0); HGB 15.2 g/dL (13.5-17.5); MCH 33.7 pg (27.0-33.0); MCHC 33.3 % (32.0-36.0); MCV 101 fL (80-95); MPV 10.3 fL (8.0-11.0); Platelet Count 270 10^3/uL (130-400); RBC 4.51 10^6/uL (4.36-5.78); RDW 13.5 % (11.8-14.1); WBC 3.87 10^3/uL (4.4-10.8)
[2024-07-11 16:57] LABS: TSH (W/Ref FT4) 0.57 uIU/mL (0.36-3.74); Uric Acid 4.1 mg/dL (3.5-7.2)
== END 2024-07-11 21:12 | disposition home or self-care (01) ==
LOC: NCHCN 21:11
PROVIDERS: PCP Family Medicine; Visit Provider Family Medicine
DX: E03.9 Hypothyroidism, unspecified (principal); M10.9 Gout, unspecified
CPT/HCPCS: 85027; 84443; 84550

== ENCOUNTER → 2025-01-14 08:14 | Outpatient (BNVA) | payer MEDICARE, MEDICAID, SELFPAY | PROVIDERS: PCP Family Medicine; Referring Provider Family Medicine; Visit Provider Podiatrist | DX: L08.1 Erythrasma (principal); L03.116 Cellulitis of left lower limb; M79.672 Pain in left foot; L84 Corns and callosities; B35.3 Tinea pedis; B35.1 Tinea unguium; R23.4 Changes in skin texture; L60.3 Nail dystrophy; L60.8 Other nail disorders | CPT/HCPCS: 11055; 99213 ==

== ENCOUNTER → 2025-02-04 08:14 | Outpatient (BNVA) | payer MEDICARE, MEDICAID, SELFPAY | PROVIDERS: PCP Family Medicine; Referring Provider Family Medicine; Visit Provider Podiatrist | DX: L08.1 Erythrasma (principal); B35.3 Tinea pedis; L03.115 Cellulitis of right lower limb | CPT/HCPCS: 99213 ==